=== PATIENT | male | born 1930 | race Caucasian/White ===

== ENCOUNTER → 2017-03-14 | Outpatient (CLI) | payer MEDICARE, BC ==
[2017-03-14 09:16] LABS: ALT 25 U/L (21-72); AST 25 U/L (17-59); Cholesterol 117 mg/dL (<200); HDL Cholesterol 57 mg/dL (40-60); Triglycerides 86 mg/dL (<150)
== END | disposition home or self-care (01) ==
LOC: LABWHC1 08:35
PROVIDERS: ATTEND Internal Medicine Interventional Cardiology
DX: E78.2 Mixed hyperlipidemia (principal)
CPT/HCPCS: 36415; 80061; 84450; 84460

== ENCOUNTER → 2017-09-05 | Outpatient (CLI) | payer MEDICARE, BC ==
[2017-09-05 11:44] LABS: ALT 25 U/L (21-72); AST 28 U/L (17-59); Cholesterol 120 mg/dL (<200); Creatine Kinase 79 U/L (55-170); HDL Cholesterol 54 mg/dL (40-60)
== END | disposition home or self-care (01) ==
LOC: LABWHC1 10:04
PROVIDERS: ATTEND Nurse Practitioner Adult Health
DX: E78.2 Mixed hyperlipidemia (principal)
CPT/HCPCS: 36415; 80061; 82550; 84450; 84460

== ENCOUNTER → 2018-03-14 | Outpatient (CLI) | payer MEDICARE, BC ==
[2018-03-14 10:36] LABS: Albumin 4.4 g/dL (3.5-5.0); Calcium 9.8 mg/dL (8.4-10.2); Potassium 4.7 mmol/L (3.5-5.1); Total Bilirubin 0.5 mg/dL (0.2-1.3); Total Protein 7.1 g/dL (6.3-8.2)
== END | disposition home or self-care (01) ==
LOC: LABWHC1 09:05
PROVIDERS: ATTEND Internal Medicine Interventional Cardiology
DX: E78.2 Mixed hyperlipidemia (principal)
CPT/HCPCS: 36415; 80053; 80061

== ENCOUNTER → 2018-09-10 | Outpatient (CLI) | payer MEDICARE, BC ==
[2018-09-10 11:13] LABS: ALT 27 U/L (21-72); AST 23 U/L (17-59); Cholesterol 119 mg/dL (<200); HDL Cholesterol 50 mg/dL (40-60); LDL Cholesterol,Calculated 50 mg/dL (0-99); Triglycerides 95 mg/dL (<150)
== END | disposition home or self-care (01) ==
LOC: LABWHC1 09:31
PROVIDERS: ATTEND Internal Medicine Interventional Cardiology
DX: E78.2 Mixed hyperlipidemia (principal)
CPT/HCPCS: 36415; 80061; 84450; 84460

== ENCOUNTER → 2019-04-02 | Outpatient (CLI) | payer MEDICARE, BC ==
[2019-04-02 15:56] LABS: Albumin 4.6 g/dL (3.80-4.90); Albumin/Globulin Ratio 2.19 (1.60-3.17); Anion Gap 6.5 mmol/L (4.00-12.00); Calcium 9.6 mg/dL (8.7-10.3); Carbon Dioxide 27.5 mmol/L (21.6-31.8); Globulin 2.1 g/dL (1.6-3.3); Potassium 4.2 mmol/L (3.5-5.5); Total Bilirubin 0.5 mg/dL (0.3-1.2); Total Protein 6.7 g/dL (6.2-8.2)
== END | disposition home or self-care (01) ==
LOC: LABWHC1 08:58
PROVIDERS: ATTEND Nurse Practitioner Adult Health
DX: E78.2 Mixed hyperlipidemia (principal); I10 Essential (primary) hypertension; I25.10 Atherosclerotic heart disease of native coronary artery without angina pectoris
CPT/HCPCS: 36415; 80053; 80061

== ENCOUNTER 2019-04-17 17:55 | Inpatient (IN) | payer MEDICARE, BC ==
[2019-04-17] MEDS ORDERED: SODIUM CHLORIDE 0.9% 500 ML 500 ML IV STA (19:43)
[2019-04-17 20:15] LABS: Basophils % (A) 0 %; Eosinophils # (A) 0.2 k/uL (0-0.7); Eosinophils % (A) 2 %; HCT 35.8 % (39.0-53.0); HGB 12.2 gm/dL (13.0-17.5); Lymphocytes # (A) 0.7 k/uL (1.0-4.8); Lymphocytes % (A) 10 %; MCH 31.6 pg (25.0-35.0); MCHC 34.2 g/dL (31.0-37.0); MCV 92.5 fL (80.0-100.0); Mean Platelet Volume 6.8; Monocytes # (A) 0.4 k/uL (0-1.0); Monocytes % (A) 6 %; Neutrophils # (A) 5.8 k/uL (1.3-7.7); Neutrophils % (A) 81 %; Platelet Count 178 k/uL (150-450); RBC 3.87 m/uL (4.30-5.90); WBC 7.1 k/uL (3.8-10.6)
[2019-04-17 20:28] LABS: Albumin 4.9 g/dL (3.5-5.0); Calcium 10.2 mg/dL (8.4-10.2); Potassium 4.2 mmol/L (3.5-5.1); Total Bilirubin 0.7 mg/dL (0.2-1.3); Total Protein 7.9 g/dL (6.3-8.2)
[2019-04-17] MEDS ORDERED: MORPHINE SULFATE 4 MG/ML SYRINGE IV STA (20:29)
--- NOTE | 2019-04-17 21:59 | CT ---
EXAMINATION TYPE: CT abdomen pelvis w con DATE OF EXAM: 04/17/2019 COMPARISON: None HISTORY: Abdominal pain and nausea CT DLP: 805.5 mGycm Automated exposure control for dose reduction was used. TECHNIQUE: Helical acquisition of images was performed from the lung bases through the pelvis. CONTRAST: Performed without Oral Contrast and with IV Contrast, patient injected with 100 mL of Isovu e 300. FINDINGS: LUNG BASES: No significant abnormality is appreciated. BOWEL: There is mild small bowel dilation of ileal loops in the right lower quadrant and mid abdomen . These loops show mild circumferential mural thickening, seen particularly well at the midline at an d just below the level of the sacral promontory. There is no pneumatosis, pneumoperitoneum, or peritoneal fluid. There is collapsed distal ileum, and the colon shows both gas and fecal material throughout. The celiac axis and SMA and SRIDHAR are patent th ere are no mesenteric abnormalities. Appendix is negative. LIVER/GB: No significant abnormality is appreciated. PANCREAS: No significant abnormality is seen. SPLEEN: No significant abnormality is seen. ADRENALS: No significant abnormality is seen. KIDNEYS: No significant abnormality is seen. ADENOPATHY: None visualized REPRODUCTIVE ORGANS: No significant abnormality is seen. Fluid density incidentally noted within the right scrotal sac and spermatic cord, for which palpation correlation is requested. URINARY BLADDER: No significant abnormality is seen. OSSEOUS STRUCTURES: No significant abnormality is seen. OTHER: No acute vascular process. 3 cm abdominal aortic aneurysm noted. IMPRESSION: 1. MILD DISTAL ILEAL SMALL BOWEL OBSTRUCTION; SUSPECT ADHESIONS THERE IS NO PATHOLOGY AT THE ILEAL TRANSITION POINT. 2. INCIDENTAL FLUID DENSITY WITHIN RIGHT SCROTAL SAC AND SPERMATIC CORD.
[2019-04-17] MEDS ORDERED: NALOXONE 0.4 MG/ML 1 ML VIAL IV PRN (22:44)
[2019-04-17] MEDS ORDERED: MORPHINE SULFATE 4 MG/ML SYRINGE IV PRN (22:44)
--- NOTE | 2019-04-17 22:44 | ED ---
General Adult HPI - General Chief complaint: Abdominal Pain Stated complaint: groin pain Time Seen by Provider: 04/17/19 19:42 Source: patient, RN notes reviewed, old records reviewed Mode of arrival: wheelchair Limitations: no limitations - History of Present Illness Initial comments: 88-year-old male patient with past medical history of hypertension, hyp erlipidemia presents to ED with right lower quadrant abdominal pain. Patient reports he has had waxing pain approximately 2 months. Patient did have one episode of emesis today. Patient denies any fevers. Patient denies any other complaints. Denies chest pain shortness breath abdominal pain. Systemic: Pt denies fatigue, myalgia, fever/chills, rash. Pt denies weakness, night sweats, weight loss. Neuro: Pt denies headache, visual disturbances, syncope or pre-syncope. HEENT: Pt denies ocular discharge or irritation, otalgia, rhinorrhea, pharyngitis or notable lymphadenopathy. Cardiopulmonary: Pt denies chest pain, SOB, heart palpitations, dyspnea on exertion. Abdominal/GI: Pt denies v/d. : Pt denies dysuria, burning w/ urination, frequency/urgency. Denies new onset urinary or bowel incontinence. MSK: Pt denies myalgia, loss of strength or function in extremities. Neuro: Pt denies new onset weakness, paresthesias. - Related Data Allergies Allergy/AdvReac Type Severity Reaction Status Date / Time No Known Allergies Allergy Verified 04/17/19 18:13 Review of Systems ROS Statement: Those systems with pertinent positive or pertinent negative responses have been documented in the HPI. ROS Other: All systems not noted in ROS Statement are negative. Past Medical History Past Medical History: Hyperlipidemia, Hypertension History of Any Multi-Drug Resistant Organisms: None Reported Past Surgical History: Joint Replacement Past Psychological History: No Psychological Hx Reported Smoking Status: Never smoker Past Alcohol Use History: None Reported Past Drug Use History: None Reported General Exam - General Exam Comments Initial Comments: Constitutional: NAD, AOX3, Pt has pleasant affect. HEENT: NC/AT, trachea midline, neck supple, no lymphadenopathy. Posterior pharynx non erythematous, without exudates. External ears appear normal, without discharge. Mucous membranes moist. Eyes PERRLA, EOM intact. There is no scleral icterus. No pallor noted. Cardiopulmonary: RRR, no murmurs, rubs or gallops, no JVD noted. Lungs CTAB in anterior and posterior [place]. No peripheral edema. Abdominal exam: Abdomen soft and non-distended. Abdomen mildly tender to palpation right lower quadrant, no other areas of abdominal tenderness. No guarding or rigidity no ecchymoses.. Bowel sounds active in LLQ. No hepatosplenomegaly. No ecchymosis Neuro: CN II-XII grossly intact. No nuchal rigidity. MSK: No posterior calf tenderness bilaterally, homans sign negative bilaterally. Posterior tibialis and radial pulse +2 bilaterally. Sensation intact in upper and lower extremities. Full active ROM in upper and lower extremities, 5/5 stregnth. Limitations: no limitations Course Vital Signs 04/17/19 04/17/19 18:09 20:28 Temperature 98.9 F Pulse Rate 58 L 77 Respiratory 20 16 Rate Blood Pressure 186/79 141/82 O2 Sat by Pulse 100 98 Oximetry Medical Decision Making - Medical Decision Making 88-year-old male patient with past medical history of hypertension, hyperlipidemia presents to ED with right lower quadrant abdominal pain. Patient reports he has had waxing pain approximately 2 months. Patient did have one episode of emesis today. Patient denies any fevers. Patient denies any other complaints. Denies chest pain shortness breath abdominal pain. Pt VSS, afebrile. Physical exam displayed: Abdomen soft and non-distended. Abdomen mildly tender to palpation right lower quadrant, no other areas of abdominal tenderness. No guarding or rigidity no ecchymoses. Laboratory investigations displayed nonpresent CBC, CMP. CT abdomen pelvis displayed small bowel instruction. G-tube placed. Patient be admitted for small bowel obstruction surgery consult. Case discussed the patient seen by Dr. Valadez. - Lab Data Result diagrams: 04/17/19 20:05 04/17/19 20:05 Lab Results 04/17/19 04/17/19 04/17/19 Range/Units 20:05 20:05 20:05 WBC 7.1 (3.8-10.6) k/uL RBC 3.87 L (4.30-5.90) m/uL Hgb 12.2 L (13.0-17.5) gm/dL Hct 35.8 L (39.0-53.0) % MCV 92.5 (80.0-100.0) fL MCH 31.6 (25.0-35.0) pg MCHC 34.2 (31.0-37.0) g/dL RDW 14.0 (11.5-15.5) % Plt Count 178 (150-450) k/uL Neutrophils % 81 % Lymphocytes % 10 % Monocytes % 6 % Eosinophils % 2 % Basophils % 0 % Neutrophils # 5.8 (1.3-7.7) k/uL Lymphocytes # 0.7 L (1.0-4.8) k/uL Monocytes # 0.4 (0-1.0) k/uL Eosinophils # 0.2 (0-0.7) k/uL Basophils # 0.0 (0-0.2) k/uL Sodium 141 (137-145) mmol/L Potassium 4.2 (3.5-5.1) mmol/L Chloride 103 (98-107) mmol/L Carbon Dioxide 29 (22-30) mmol/L Anion Gap 9 mmol/L BUN 27 H (9-20) mg/dL Creatinine 0.99 (0.66-1.25) mg/dL Est GFR (CKD-EPI)AfAm 79 (>60 ml/min/1.73 sqM) Est GFR (CKD-EPI)NonAf 68 (>60 ml/min/1.73 sqM) Glucose 142 H (74-99) mg/dL Plasma Lactic Acid [place] 1.1 (0.7-2.0) mmol/L Calcium 10.2 (8.4-10.2) mg/dL Total Bilirubin 0.7 (0.2-1.3) mg/dL AST 31 (17-59) U/L ALT 16 L (21-72) U/L Alkaline Phosphatase 97 (38-126) U/L Total Protein 7.9 (6.3-8.2) g/dL Albumin 4.9 (3.5-5.0) g/dL Lipase 89 (23-300) U/L Disposition Clinical Impression: Small bowel obstruction Disposition: ADMITTED IP TO THIS [facility] Condition: Serious Is patient prescribed a controlled substance at d/c from ED?: No
[2019-04-18 00:07] LABS: Appearance,Urine Clear (Clear); Bilirubin,Urine Negative (Negative); Blood,Urine Small (Negative); Color,Urine Light Yellow; Glucose,Urine (UA) Negative (Negative); Ketones,Urine Negative (Negative); Leukocyte Esterase,Urine Negative (Negative); Mucus,Urine Rare /hpf; Nitrite,Urine Negative (Negative); PH, Urine 7.5 (5.0-8.0); Protein,Urine Negative (Negative); RBC,Urine 21 /hpf (0-5); Urobilinogen,Urine <2.0 mg/dL (<2.0)
[2019-04-18] MEDS: SODIUM CHLORIDE 0.9% 1,000 ML IV SCH ×3 (00:09→17:46)
--- NOTE | 2019-04-18 01:02 | XR ---
EXAM: XR Chest, 1 View CLINICAL HISTORY: ITS.REASON XR Reason: newly placed NGT TECHNIQUE: Frontal view of the chest. COMPARISON: No relevant prior studies available. FINDINGS: Lungs: The lungs are otherwise clear. Pleural space: Unremarkable. No pneumothorax. Heart: Unremarkable. No cardiomegaly. Mediastinum: Unremarkable. Bones/joints: Unremarkable. Vasculature: 5 mm presumed vessel on end versus less likely nodule in the left lower lung. Mild calcification of the aortic arch. Tubes, lines and devices: The gastric tube is not well-visualized on this exam. A presumed endotracheal tube terminates approximately 3.5 cm about the skip. Alternatively, this could represent the tip of the gastric tube. IMPRESSION: 1. 5 mm presumed vessel on end versus less likely nodule in the left lower lung. 2. The gastric tube is not well-visualized on this exam. A presumed endotracheal tube terminates approximately 3.5 cm about the skip. Alternatively, this could represent the tip of the gastric tube. An abdominal radiograph would be more sensitive in evaluation of the gastric tube.
[2019-04-18 01:45] VITALS: RESP 16
[2019-04-18] MEDS ORDERED: ACETAMINOPHEN TAB 325 MG TAB PO PRN (11:24)
[2019-04-18] MEDS ORDERED: KETOROLAC 30 MG/ML 1 ML VIAL IVP PRN (11:27)
--- NOTE | 2019-04-18 12:37 | P.HPIM ---
History of Present Illness present pleasant 88-year-old gentleman came in with complaints of nausea vomiting restarted yesterday multiple episodes of emesis along with mild diffuse abdominal pain predominantly in the right lower quadrant. Pain is significant better now. Patient is an NG tube didn't drain much patient is found to have partial small bowel obstruction at deodenal level secondary to adhesions. We will clamp the NG tube will monitor for 3 hours patient is not nauseous NG tube will be discussed in patient will be started on diet. Morphine will be discontinued patient was started on Tylenol for pain and if needed Toradol with GI prophylaxis.his last bowel movement was a couple days ago Review of Systems REVIEW OF SYSTEMS: CONSTITUTIONAL: No fever, no malaise, no fatigue. HEENT: No recent visual problems or hearing problems. Denied any sore throat. CARDIOVASCULAR: No chest pain, orthopnea, PND, no palpitations, no syncope. PULMONARY: No shortness of breath, no cough, no hemoptysis. GASTROINTESTINAL: as mentioned in HPI NEUROLOGICAL: No headaches, no weakness, no numbness. HEMATOLOGICAL: Denies any bleeding or petechiae. GENITOURINARY: Denies any burning micturition, frequency, or urgency. MUSCULOSKELETAL/RHEUMATOLOGICAL: Denies any joint pain, swelling, or any muscle pain. ENDOCRINE: Denies any polyuria or polydipsia. The rest of the 14-point review of systems is negative. Past Medical History Past Medical History: Hyperlipidemia, Hypertension History of Any Multi-Drug Resistant Organisms: None Reported Past Surgical History: Joint Replacement Past Anesthesia/Blood Transfusion Reactions: No Reported Reaction Past Psychological History: No Psychological Hx Reported Smoking Status: Never smoker Past Alcohol Use History: None Reported Past Drug Use History: None Reported - Past Family History Mother Family Medical History: No Reported History Medications and Allergies Home Medications Medication Instructions Recorded Confirmed Type Aspirin EC [Ecotrin Low Dose] 81 mg PO DAILY 04/18/19 04/18/19 History Atorvastatin [Lipitor] 20 mg PO DAILY 04/18/19 04/18/19 History Enalapril/Hydrochlorothiazide 1 tab PO DAILY 04/18/19 04/18/19 History [Enalapril-Hctz 10-25 mg Tablet] HYDROcodone/APAP 10-325MG [[place] 1 tab PO Q4HR PRN 04/18/19 04/18/19 History 10-325] Isosorbide Mononitrate ER [Imdur] 60 mg PO DAILY 04/18/19 04/18/19 History Levothyroxine Sodium [Synthroid] 50 mcg PO DAILY 04/18/19 04/18/19 History Multivitamins, Thera [Multivitamin 1 tab PO DAILY 04/18/19 04/18/19 History (formulary)] Tamsulosin [Flomax] 0.4 mg PO BID 04/18/19 04/18/19 History Allergies Allergy/AdvReac Type Severity Reaction Status Date / Time No Known Allergies Allergy Verified 04/18/19 08:56 Physical Exam Vitals: Vital Signs Temp Pulse Pulse Resp BP BP Pulse Ox 04/18/19 07:05 98.6 F 54 L 16 183/81 100 04/18/19 01:41 98.4 F 53 L 16 179/71 93 L 04/18/19 00:15 98.9 F 60 19 189/77 100 04/18/19 00:07 98.2 F 61 16 181/73 98 04/17/19 20:28 77 16 141/82 98 04/17/19 18:09 98.9 F 58 L 20 186/79 100 Intake and Output 04/17/19 04/18/19 04/18/19 22:59 06:59 14:59 Intake Total 2160 Output Total 700 Balance 2160 -700 Intake: Amount of Fluid Infused ( 1000 ml) Intake, IV Titration 1160 Amount Sodium Chloride 0.9% 1, 660 000 ml @ 110 mls/hr IV . Q9H6M VILMA Rx#:[id number] Sodium Chloride 0.9% 500 500 ml 500 ml @ 999 mls/hr IV .Q31M STA Rx#:[id number] Output: Urine 700 Other: # Voids 3 Weight 72.575 kg PHYSICAL EXAMINATION: GENERAL: The patient is alert and oriented x3, not in any acute distress. Well developed, well nourished. HEENT: Pupils are round and equally reacting to light. EOMI. No scleral icterus. No conjunctival pallor. Normocephalic, atraumatic. No pharyngeal erythema. No thyromegaly. CARDIOVASCULAR: S1 and S2 present. No murmurs, rubs, or gallops. PULMONARY: Chest is clear to auscultation, no wheezing or crackles. ABDOMEN: Soft, nontender, nondistended, normoactive bowel sounds. No palpable organomegaly.patient has an NG tube in place MUSCULOSKELETAL: No joint swelling or deformity. EXTREMITIES: No cyanosis, clubbing, or pedal edema. NEUROLOGICAL: Gross neurological examination did not reveal any focal deficits. SKIN: No rashes. Results CBC & Chem 7: 04/17/19 20:05 04/17/19 20:05 Labs: Abnormal Lab Results - Last 24 Hours (Table) 04/17/19 04/17/19 04/17/19 Range/Units 20:05 20:05 23:50 RBC 3.87 L (4.30-5.90) m/uL Hgb 12.2 L (13.0-17.5) gm/dL Hct 35.8 L (39.0-53.0) % Lymphocytes # 0.7 L (1.0-4.8) k/uL BUN 27 H (9-20) mg/dL Glucose 142 H (74-99) mg/dL ALT 16 L (21-72) U/L Ur Specific [place] 1.050 H (1.001-1.035) Urine Blood Small H (Negative) Urine RBC 21 H (0-5) /hpf Urine Mucus Rare H (None) /hpf Thrombosis Risk Factor Assmnt - Choose All That Apply Any of the Below Risk Factors Present?: Yes Each Factor Represents 1 point: Obesity (BMI >25) Other Risk Factors: Yes Each Risk Factor Represents 3 Points: Age 75 years or older Other congenital or acquired thrombophilia - If yes, enter type in comment: No Thrombosis Risk Factor Assessment Total Risk Factor Score: 4 Thrombosis Risk Factor Assessment Level: Moderate Risk Assessment and Plan Plan: -partial small bowel obstruction: continue with IV fluids, IV fluids to 75 mL/h clamped NG tube as mentioned above and patient is not nauseous NG tube will be discontinued and patient was started on diet. -hyperlipidemia - hypertension -hypothyroidism -Benign prostatic hypertrophy -GI prophylaxis with Protonix and DVT prophylaxis, early ambulation Further those above-mentioned chronic medical problems patient will be resumed on appropriate home medications whenever he can tolerate by mouth meds.
[2019-04-18] MEDS: PANTOPRAZOLE 40 MG/10 ML VIAL IVP SCH (12:47)
--- NOTE | 2019-04-18 15:02 | P.GSCN ---
History of Present Illness Consult date: 04/18/19 Reason for Consult: Right groin pain History of present illness: Patient presents to the hospital complaints of pain in the right groin. Patient had a CAT scan performed which shows some fluid in the right inguinal canal and also some thickening of the terminal ileum. The patient states he was not feeling a bulge there. He was previously told he had a hernia in the left groin. Patient doing better today. Nasogastric tube was in place. Last bowel movement 2 days ago. No nausea or vomiting. Denies pain currently. Review of Systems The patient denies any acute changes in vision or hearing, no dysphagia or odynophagia, no chest pain or shortness of breath, no dysuria or hematuria, no headache, no runny nose, no rectal bleeding or melena, no unexplained weight loss Past Medical History Past Medical History: Hyperlipidemia, Hypertension History of Any Multi-Drug Resistant Organisms: None Reported Past Surgical History: Joint Replacement Past Anesthesia/Blood Transfusion Reactions: No Reported Reaction Past Psychological History: No Psychological Hx Reported Smoking Status: Never smoker Past Alcohol Use History: None Reported Past Drug Use History: None Reported - Past Family History Mother Family Medical History: No Reported History Medications and Allergies Home Medications Medication Instructions Recorded Confirmed Type Aspirin EC [Ecotrin Low Dose] 81 mg PO DAILY 04/18/19 04/18/19 History Atorvastatin [Lipitor] 20 mg PO DAILY 04/18/19 04/18/19 History Enalapril/Hydrochlorothiazide 1 tab PO DAILY 04/18/19 04/18/19 History [Enalapril-Hctz 10-25 mg Tablet] HYDROcodone/APAP 10-325MG [[place] 1 tab PO Q4HR PRN 04/18/19 04/18/19 History 10-325] Isosorbide Mononitrate ER [Imdur] 60 mg PO DAILY 04/18/19 04/18/19 History Levothyroxine Sodium [Synthroid] 50 mcg PO DAILY 04/18/19 04/18/19 History Multivitamins, Thera [Multivitamin 1 tab PO DAILY 04/18/19 04/18/19 History (formulary)] Tamsulosin [Flomax] 0.4 mg PO BID 04/18/19 04/18/19 History Allergies Allergy/AdvReac Type Severity Reaction Status Date / Time No Known Allergies Allergy Verified 04/18/19 08:56 Surgical - Exam Vital Signs Temp Pulse Resp BP Pulse Ox 98.9 F 58 L 20 186/79 100 04/17/19 18:09 04/17/19 18:09 04/17/19 18:09 04/17/19 18:09 04/17/19 18:09 Physical exam: General: Well-developed, well-nourished HEENT: Normocephalic, sclerae nonicteric Abdomen: Nontender, nondistended, bilateral inguinal hernia palpable and reducible Extremities: No edema Neuro: Alert and oriented Results - Labs 04/17/19 20:05 04/17/19 20:05 Abnormal Lab Results - Last 24 Hours (Table) 04/17/19 04/17/19 04/17/19 Range/Units 20:05 20:05 23:50 RBC 3.87 L (4.30-5.90) m/uL Hgb 12.2 L (13.0-17.5) gm/dL Hct 35.8 L (39.0-53.0) % Lymphocytes # 0.7 L (1.0-4.8) k/uL BUN 27 H (9-20) mg/dL Glucose 142 H (74-99) mg/dL ALT 16 L (21-72) U/L Ur Specific [place] 1.050 H (1.001-1.035) Urine Blood Small H (Negative) Urine RBC 21 H (0-5) /hpf Urine Mucus Rare H (None) /hpf Diabetes panel 04/17/19 Range/Units 20:05 Sodium 141 (137-145) mmol/L Potassium 4.2 (3.5-5.1) mmol/L Chloride 103 (98-107) mmol/L Carbon Dioxide 29 (22-30) mmol/L BUN 27 H (9-20) mg/dL Creatinine 0.99 (0.66-1.25) mg/dL Glucose 142 H (74-99) mg/dL Calcium 10.2 (8.4-10.2) mg/dL AST 31 (17-59) U/L ALT 16 L (21-72) U/L Alkaline Phosphatase 97 (38-126) U/L Total Protein 7.9 (6.3-8.2) g/dL Albumin 4.9 (3.5-5.0) g/dL Calcium panel 04/17/19 Range/Units 20:05 Calcium 10.2 (8.4-10.2) mg/dL Albumin 4.9 (3.5-5.0) g/dL Pituitary panel 04/17/19 Range/Units 20:05 Sodium 141 (137-145) mmol/L Potassium 4.2 (3.5-5.1) mmol/L Chloride 103 (98-107) mmol/L Carbon Dioxide 29 (22-30) mmol/L BUN 27 H (9-20) mg/dL Creatinine 0.99 (0.66-1.25) mg/dL Glucose 142 H (74-99) mg/dL Calcium 10.2 (8.4-10.2) mg/dL Adrenal panel 04/17/19 Range/Units 20:05 Sodium 141 (137-145) mmol/L Potassium 4.2 (3.5-5.1) mmol/L Chloride 103 (98-107) mmol/L Carbon Dioxide 29 (22-30) mmol/L BUN 27 H (9-20) mg/dL Creatinine 0.99 (0.66-1.25) mg/dL Glucose 142 H (74-99) mg/dL Calcium 10.2 (8.4-10.2) mg/dL Total Bilirubin 0.7 (0.2-1.3) mg/dL AST 31 (17-59) U/L ALT 16 L (21-72) U/L Alkaline Phosphatase 97 (38-126) U/L Total Protein 7.9 (6.3-8.2) g/dL Albumin 4.9 (3.5-5.0) g/dL Assessment and Plan (1) Small bowel obstruction Narrative/Plan: Patient with likely presentation of incarcerated right inguinal hernia. I suspect shortly before the CAT scan was performed the patient's hernia reduced. This would explain the thickening of the ileum and the fluid in the inguinal canal. Patient a symptomatically currently. We'll remove nasogastric tube and start diet. May discharge tolerates. Plan outpatient hernia repair. Current Visit: Yes Status: Acute Code(s): K56.609 - UNSP INTESTNL OBST, UNSP TO PARTIAL VERSUS COMPLETE OBST SNOMED Code(s): 325486894
[2019-04-18] MEDS: TAMSULOSIN 0.4 MG CAP.ER.24H PO SCH (20:40)
[2019-04-19] MEDS ORDERED: LEVOTHYROXINE 50 MCG TAB PO SCH (06:30)
[2019-04-19 07:15] LABS: Calcium 9.3 mg/dL (8.4-10.2); Potassium 3.9 mmol/L (3.5-5.1)
[2019-04-19 08:12] VITALS: BP 147/65; PULSE 62; TEMP 98.1
[2019-04-19] MEDS: PANTOPRAZOLE 40 MG/10 ML VIAL IVP SCH ×2 (08:13→12:27)
[2019-04-19] MEDS: TAMSULOSIN 0.4 MG CAP.ER.24H PO SCH (08:13)
[2019-04-19] MEDS ORDERED: ATORVASTATIN 20 MG TAB PO SCH (09:00)
[2019-04-19] MEDS ORDERED: ISOSORBIDE MONONITRATE ER 60 MG TAB.ER.24H PO SCH (09:00)
[2019-04-19] MEDS ORDERED: ASPIRIN 81 MG PO SCH (09:00)
[2019-04-19] MEDS: SODIUM CHLORIDE 0.9% 1,000 ML IV SCH (09:59)
--- NOTE | 2019-04-19 11:32 | P.PN ---
Progress Note - Text Progress Note Date: 04/19/19 Patient is doing well. He has no plans of pain. He is tolerating diet. On exam is lesser stable presents soft. Patiently discharged home today. He'll follow-up Dr. Jones next week.
--- NOTE | 2019-04-19 12:55 | P.DS ---
Providers Date of admission: 04/17/19 22:20 Attending physician: Natalie Tubbs Consults: 04/17/19 22:44 Consult Physician Stat Consulting Provider: Damon Jones Reason/Comments: small bowel obstruction Do you want consulting provider notified?: Yes Primary care physician: Kristi Huerta [facility] Course: 88-year-old gentleman came in with complaints of nausea vomiting restarted yesterday multiple episodes of emesis along with mild diffuse abdominal pain predominantly in the right lower quadrant. Pain is significant better now. Patient is an NG tube didn't drain much patient is found to have partial small bowel obstruction at deodenal level secondary to adhesions. We will clamp the NG tube will monitor for 3 hours patient is not nauseous NG tube will be discussed in patient will be started on diet. Morphine will be discontinued patient was started on Tylenol for pain and if needed Toradol with GI prophylaxis.his last bowel movement was a couple days ago 04/19/2019 Patient is able to tolerate regular diet very well. Patient bowel obstruction resolved patient appears to have had incarcerated hernia which was reduced area and patient is cleared from general surgery perspective. PHYSICAL EXAMINATION: GENERAL: The patient is alert and oriented x3, not in any acute distress. Well developed, well nourished. HEENT: Pupils are round and equally reacting to light. EOMI. No scleral icterus. No conjunctival pallor. Normocephalic, atraumatic. No pharyngeal erythema. No thyromegaly. CARDIOVASCULAR: S1 and S2 present. No murmurs, rubs, or gallops. PULMONARY: Chest is clear to auscultation, no wheezing or crackles. ABDOMEN: Soft, nontender, nondistended, normoactive bowel sounds. No palpable organomegaly. MUSCULOSKELETAL: No joint swelling or deformity. EXTREMITIES: No cyanosis, clubbing, or pedal edema. NEUROLOGICAL: Gross neurological examination did not reveal any focal deficits. SKIN: No rashes. Further chronic medical problems hospitalization course please refer to my dictation of H&P from yesterday Patient Condition at Discharge: Serious Plan - Discharge Summary Discharge Rx Participant: Yes New Discharge Prescriptions: Continue Atorvastatin [Lipitor] 20 mg PO DAILY Tamsulosin [Flomax] 0.4 mg PO BID Multivitamins, Thera [Multivitamin (formulary)] 1 tab PO DAILY Levothyroxine Sodium [Synthroid] 50 mcg PO DAILY Isosorbide Mononitrate ER [Imdur] 60 mg PO DAILY HYDROcodone/APAP 10-325MG [[place] 10-325] 1 tab PO Q4HR PRN PRN Reason: Pain Enalapril/Hydrochlorothiazide [Enalapril-Hctz 10-25 mg Tablet] 1 tab PO DAILY Aspirin EC [Ecotrin Low Dose] 81 mg PO DAILY Discharge Medication List Aspirin EC [Ecotrin Low Dose] 81 mg PO DAILY 04/18/19 [History] Atorvastatin [Lipitor] 20 mg PO DAILY 04/18/19 [History] Enalapril/Hydrochlorothiazide [Enalapril-Hctz 10-25 mg Tablet] 1 tab PO DAILY 04/18/19 [History] HYDROcodone/APAP 10-325MG [[place] 10-325] 1 tab PO Q4HR PRN 04/18/19 [History] Isosorbide Mononitrate ER [Imdur] 60 mg PO DAILY 04/18/19 [History] Levothyroxine Sodium [Synthroid] 50 mcg PO DAILY 04/18/19 [History] Multivitamins, Thera [Multivitamin (formulary)] 1 tab PO DAILY 04/18/19 [History] Tamsulosin [Flomax] 0.4 mg PO BID 04/18/19 [History] Follow up Appointment(s)/Referral(s): Damon Jones MD [Medical Doctor] - 1 Week Kristi Huerta DO [Primary Care Provider] - 3 Days Discharge Disposition: HOME SELF-CARE
== END 2019-04-19 13:23 | disposition home or self-care (01) | DRG 389 ==
LOC: EC 17:55 → 4SSUR 22:20
PROVIDERS: ADMIT Hospitalist; ATTEND Hospitalist
PROC: 0D9670Z Drainage of Stomach with Drainage Device, Via Natural or Artificial Opening (ICD-10-PCS; principal; 2019-04-17)
DX: K56.51 Intestinal adhesions [bands], with partial obstruction (principal); K40.30 Unilateral inguinal hernia, with obstruction, without gangrene, not specified as recurrent; I10 Essential (primary) hypertension; E78.5 Hyperlipidemia, unspecified; E03.9 Hypothyroidism, unspecified; N40.0 Benign prostatic hyperplasia without lower urinary tract symptoms; Z79.82 Long term (current) use of aspirin; Z79.890 Hormone replacement therapy; Z79.899 Other long term (current) drug therapy
CPT/HCPCS: 36415; 71045; 74177; 80048; 80053; 81001; 83605; 83690; 85025; 96360; 96361; 99285

== ENCOUNTER → 2019-09-17 | Outpatient (CLI) | payer MEDICARE, BC ==
[2019-09-17 10:36] LABS: Basophils % (A) 1 %; Eosinophils % (A) 1 %; HCT 32.6 % (39.0-53.0); HGB 11.1 gm/dL (13.0-17.5); Lymphocytes # (A) 0.5 k/uL (1.0-4.8); Lymphocytes % (A) 12 %; MCH 31.9 pg (25.0-35.0); MCHC 34.1 g/dL (31.0-37.0); MCV 93.3 fL (80.0-100.0); Mean Platelet Volume 5.6; Monocytes # (A) 0.2 k/uL (0-1.0); Monocytes % (A) 5 %; Neutrophils # (A) 3.3 k/uL (1.3-7.7); Neutrophils % (A) 80 %; Platelet Count 191 k/uL (150-450); RBC 3.49 m/uL (4.30-5.90); RDW 12.7 % (11.5-15.5); WBC 4.1 k/uL (3.8-10.6)
[2019-09-17 15:49] LABS: African American GFR (CKD) 77.5 (60.0-200.0); Albumin 4.7 g/dL (3.80-4.90); Albumin/Globulin Ratio 2.24 (1.60-3.17); Anion Gap 11.9 mmol/L (4.00-12.00); Calcium 9.7 mg/dL (8.7-10.3); Carbon Dioxide 24.1 mmol/L (21.6-31.8); Chol/HDL Ratio 2.42; Globulin 2.1 g/dL (1.6-3.3); LDL Cholesterol,Calculated 55.4 mg/dL (0.0-131.0); Potassium 4.2 mmol/L (3.5-5.5); Total Bilirubin 0.7 mg/dL (0.3-1.2); Total Protein 6.8 g/dL (6.2-8.2); VLDL Calculation 19.6 mg/dL (5.00-40.00)
== END | disposition home or self-care (01) ==
LOC: LABWHC1 09:39
PROVIDERS: ATTEND Nurse Practitioner Adult Health
DX: E78.2 Mixed hyperlipidemia (principal); E03.9 Hypothyroidism, unspecified
CPT/HCPCS: 36415; 80053; 80061; 84443; 85025

== ENCOUNTER 2019-10-11 16:18 | Emergency (ER) | payer MEDICARE, BC ==
--- NOTE | 2019-10-11 18:02 | US ---
EXAMINATION TYPE: US groin RT DATE OF EXAM: 10/11/2019 COMPARISON: CT CLINICAL HISTORY: pain, hx of hernia. Swelling and pain right groin and pubic area; patient stated sadler s hernia here x 1 year. Right Groin US: tubular bowel structure (peristalsing noted within) at right groin medial and anterio r to iliac vessels and imaged superior as elongated hypoechoic structure to inferior level of scrotum . Suspect hernia here. Right hydrocele also noted = 5.8 x 3.1 x 1.4cm. Left hydrocele imaged = 8.5 x 6.4 x 5.4cm. Color flow is imaged in bilateral testicle. IMPRESSION: There is evidence of a right-sided inguinal and scrotal hernia that contains bowel. Righ t-sided hydrocele also noted. Color-flow Doppler images show no evidence of testicular torsion.
--- NOTE | 2019-10-11 18:13 | ED ---
Abdominal Pain HPI - General Chief Complaint: Abdominal Pain Stated Complaint: groin pain Time Seen by Provider: 10/11/19 16:37 Source: patient Mode of arrival: ambulatory Limitations: no limitations - History of Present Illness Initial Comments: Patient is an 89-year-old male presenting to emergency Department with complaints of right sided groin pain that happened just a couple hours before arrival. Patient states he was screwing some plastic into the windows when he felt pain in his right groin. Patient states he does have history of a hernia b ut states is never hurt this bad before. Patient states he feels a bulge in his right groin. Patient has been having regular bowel movements. Patient did have a consult with Dr. Dominguez and Dr. Tineo during his last hospital admission due to an obstruction however he does not wish to continue care with either the surgeons. Patient denies any nausea, vomiting, fever, chills. Patient has no other complaints at this time. Upon arrival to the ER, vital signs are stable. - Related Data Home Medications Medication Instructions Recorded Confirmed Aspirin EC [Ecotrin Low Dose] 81 mg PO DAILY 04/18/19 04/18/19 Atorvastatin [Lipitor] 20 mg PO DAILY 04/18/19 04/18/19 Enalapril/Hydrochlorothiazide 1 tab PO DAILY 04/18/19 04/18/19 [Enalapril-Hctz 10-25 mg Tablet] HYDROcodone/APAP 10-325MG [[place] 1 tab PO Q4HR PRN 04/18/19 04/18/19 10-325] Isosorbide Mononitrate ER [Imdur] 60 mg PO DAILY 04/18/19 04/18/19 Levothyroxine Sodium [Synthroid] 50 mcg PO DAILY 04/18/19 04/18/19 Multivitamins, Thera [Multivitamin 1 tab PO DAILY 04/18/19 04/18/19 (formulary)] Tamsulosin [Flomax] 0.4 mg PO BID 04/18/19 04/18/19 Allergies Allergy/AdvReac Type Severity Reaction Status Date / Time No Known Allergies Allergy Verified 10/11/19 16:32 Review of Systems ROS Statement: Those systems with pertinent positive or pertinent negative responses have been documented in the HPI. ROS Other: All systems not noted in ROS Statement are negative. Past Medical History Past Medical History: Hyperlipidemia, Hypertension History of Any Multi-Drug Resistant Organisms: None Reported Past Surgical History: Joint Replacement Past Anesthesia/Blood Transfusion Reactions: No Reported Reaction Past Psychological History: No Psychological Hx Reported Smoking Status: Never smoker Past Alcohol Use History: None Reported Past Drug Use History: None Reported - Past Family History Mother Family Medical History: No Reported History General Exam - General Exam Comments Initial Comments: GENERAL: Well-appearing, well-nourished and in no acute distress. HEAD: Atraumatic, normocephalic. EYES: Pupils equal round and reactive to light, extraocular movements intact, sclera anicteric, conjunctiva are normal. ENT: TMs normal, nares patent, oropharynx clear without exudates. Moist mucous membranes. NECK: Normal range of motion, supple without lymphadenopathy or JVD. LUNGS: Breath sounds clear to auscultation bilaterally and equal. No wheezes rales or rhonchi. HEART: Regular rate and rhythm without murmurs, rubs or gallops. ABDOMEN: Tender to palpation of the right inguinal area with noted bulge. Soft, nontender, normoactive bowel sounds. No guarding, no rebound. No masses appreciated. EXTREMITIES: Normal range of motion, no pitting or edema. No clubbing or cyanosis. NEUROLOGICAL: Cranial nerves II through XII grossly intact. Normal speech, normal gait. PSYCH: Normal mood, normal affect. SKIN: Warm, Dry, normal turgor, no rashes or lesions noted. Limitations: no limitations exam: Present: scrotal swelling (Right-sided). Absent: urethral discharge Course Vital Signs 10/11/19 16:30 Temperature 98.4 F Pulse Rate 63 Respiratory 16 Rate Blood Pressure 127/60 O2 Sat by Pulse 100 Oximetry - Reevaluation(s) Reevaluation #1: 10/11/19 19:34 Dr. Catherine is here to evaluate the patient. Medical Decision Making - Medical Decision Making Patient is an 89-year-old male presenting with right groin pain with sudden onset approximately 2 hours before arrival. Patient has history of hernia. Ultrasound of the right groin reveals a right-sided inguinal and scrotal hernia that contains bowel. Right-sided hydrocele as well. There is no evidence of testicular torsion. KUB shows no signs of obstruction. Case was discussed with Dr. Moore. Dr. Catherine was contacted for consultation. Dr. Catherine was able to reduce the hernia. Patient is stable for discharge at this time. Patient will follow up with Dr. Catherine after getting cardiac clearance from his medical device assembler for repair. Patient's agreement with this plan of care. Return parameters were discussed with the patient he verbalizes understanding. Disposition Clinical Impression: Reducible right inguinal hernia Disposition: HOME SELF-CARE Condition: Stable Instructions (If sedation given, give patient instructions): Inguinal Hernia (ED) Additional Instructions: Please return to the Emergency Department if symptoms worsen or any other concerns. Follow-up with Dr. Catherine as discussed after seeing medical device assembler. Is patient prescribed a controlled substance at d/c from ED?: No Referrals: Kristi Huerta DO [Primary Care Provider] - 1-2 days Jeanna Catherine DO [Doctor of Osteopathic Medicine] - 1-2 days
--- NOTE | 2019-10-11 18:20 | XR ---
EXAMINATION TYPE: XR KUB DATE OF EXAM: 10/11/2019 COMPARISON: NONE HISTORY: Pain TECHNIQUE: 2 views FINDINGS: Bowel gas pattern is normal. There is no sign of intestinal obstruction or pneumoperitoneum . Fecal pattern is normal. There are no pathologic calcifications over the kidneys. IMPRESSION: Nonacute abdomen.
[2019-10-11] MEDS ORDERED: MORPHINE SULFATE 4 MG/ML SYRINGE IVP STA (19:15)
--- NOTE | 2019-10-11 19:56 | P.GSHP ---
History of Present Illness H&P Date: 10/11/19 Chief Complaint: Hernia The patient is an 89 year old man with a known history of hernia. He was hospitalized in March with similar complaints, at that time the hernia spontaneously reduced. It will bother him occasionally, but it persisted with a lump today. Denies nausea or vomitint, fever or chills - Review of Systems All systems: negative Past Medical History Past Medical History: Hyperlipidemia, Hypertension Additional Past Medical History / Comment(s): cardiac arrhythmia- sees Dr Orta History of Any Multi-Drug Resistant Organisms: None Reported Past Surgical History: Joint Replacement Additional Past Surgical History / Comment(s): Possible stenting of left carotid stenosis Past Anesthesia/Blood Transfusion Reactions: No Reported Reaction Past Psychological History: No Psychological Hx Reported Smoking Status: Never smoker Past Alcohol Use History: None Reported Past Drug Use History: None Reported - Past Family History Mother Family Medical History: No Reported History Medications and Allergies Home Medications Medication Instructions Recorded Confirmed Type Aspirin EC [Ecotrin Low Dose] 81 mg PO DAILY 04/18/19 04/18/19 History Atorvastatin [Lipitor] 20 mg PO DAILY 04/18/19 04/18/19 History Enalapril/Hydrochlorothiazide 1 tab PO DAILY 04/18/19 04/18/19 History [Enalapril-Hctz 10-25 mg Tablet] HYDROcodone/APAP 10-325MG [[place] 1 tab PO Q4HR PRN 04/18/19 04/18/19 History 10-325] Isosorbide Mononitrate ER [Imdur] 60 mg PO DAILY 04/18/19 04/18/19 History Levothyroxine Sodium [Synthroid] 50 mcg PO DAILY 04/18/19 04/18/19 History Multivitamins, Thera [Multivitamin 1 tab PO DAILY 04/18/19 04/18/19 History (formulary)] Tamsulosin [Flomax] 0.4 mg PO BID 04/18/19 04/18/19 History Allergies Allergy/AdvReac Type Severity Reaction Status Date / Time No Known Allergies Allergy Verified 10/11/19 16:32 Surgical - Exam Osteopathic Statement: *. No significant issues noted on an osteopathic structural exam other than those noted in the History and Physical/Consult. Vital Signs Temp Pulse Resp BP Pulse Ox 98.4 F 63 16 127/60 100 10/11/19 16:30 10/11/19 16:30 10/11/19 16:30 10/11/19 16:30 10/11/19 16:30 - General well developed, well nourished, no distress - Eyes normal ocular movement - Neck trachea midline - Respiratory normal expansion, clear to auscultation - Cardiovascular Rhythm: regularly irregular (seems to skip a beat every 3-4 beats) Abnormal Heart Sounds: systolic murmur - Abdomen Abdomen: soft, bowel sounds Hernia: inguinal (inguinal hernia reduced after getting a dose of MS IVP) - Psychiatric oriented to time, oriented to person, oriented to place, speech is normal, memory intact Results - Imaging US - abdomen: report reviewed Assessment and Plan (1) Inguinal hernia of right side without obstruction or gangrene Current Visit: Yes Status: Acute Code(s): K40.90 - UNIL INGUINAL HERNIA, W/O OBST OR GANGR, NOT SPCF RECUR SNOMED Code(s): 317681844 (2) Cardiac arrhythmia Current Visit: Yes Status: Acute Code(s): I49.9 - CARDIAC ARRHYTHMIA, UNSPECIFIED SNOMED Code(s): 110438134 Plan: The hernia did reduce. He has an appointment with Dr Orta next week. I asked them to ask Dr Orta to give cardiac clearance for surgery, then they can call and schedule elective hernia repair. Questions were encouraged and answered.
[2019-10-11 20:58] VITALS: BP 139/64; PULSE 56; RESP 20; TEMP 98.1
== END 2019-10-11 20:37 | disposition home or self-care (01) ==
LOC: EC 16:18
DX: K40.90 Unilateral inguinal hernia, without obstruction or gangrene, not specified as recurrent (principal); N43.3 Hydrocele, unspecified; E78.5 Hyperlipidemia, unspecified; I10 Essential (primary) hypertension; Z79.82 Long term (current) use of aspirin; Z79.899 Other long term (current) drug therapy; Z79.890 Hormone replacement therapy
CPT/HCPCS: 74018; 76882; 96374; 99284; J2270

== ENCOUNTER → 2020-04-28 | Outpatient (CLI) | payer MEDICARE, BC ==
[2020-04-28 17:26] LABS: African American GFR (CKD) 56.5 (60.0-200.0); Albumin 4.2 g/dL (3.80-4.90); Albumin/Globulin Ratio 2.1 (1.60-3.17); Anion Gap 5.4 mmol/L (4.00-12.00); BUN/Creat Ratio 20.77 Ratio (12.00-20.00); Calcium 8.5 mg/dL (8.7-10.3); Carbon Dioxide 28.6 mmol/L (21.6-31.8); Chol/HDL Ratio 2.34; LDL Cholesterol,Calculated 54.4 mg/dL (0.0-131.0); Non-African American GFR(CKD) 48.7 (60.0-200.0); Potassium 4.4 mmol/L (3.5-5.5); Total Bilirubin 0.5 mg/dL (0.3-1.2); Total Protein 6.2 g/dL (6.2-8.2); VLDL Calculation 12.6 mg/dL (5.00-40.00)
== END | disposition home or self-care (01) ==
LOC: LABWHC1 09:45
PROVIDERS: ATTEND Internal Medicine Interventional Cardiology
DX: I10 Essential (primary) hypertension (principal); E78.2 Mixed hyperlipidemia
CPT/HCPCS: 36415; 80053; 80061

== ENCOUNTER 2020-09-15 15:59 | Inpatient (IN) | payer MEDICARE, BC ==
--- NOTE | 2020-09-15 16:22 | ED ---
General Adult HPI - General Chief complaint: Recheck/Abnormal Lab/Rx Stated complaint: abnormal EKG Time Seen by Provider: 09/15/20 16:08 Source: patient Mode of arrival: wheelchair Limitations: no limitations - History of Present Illness Initial comments: Dictation was produced using [employer] dictation software. please excuse any grammatical, word or spelling errors. This patient was cared for during a federal and state declared state of emergen cy secondary to Covid 19 Chief Complaint: 89-year-old male with past medical history dyslipidemia, hypertension presents today with abnormal EKG History of Present Illness: 89-year-old male presents to the emergency Department with abnormal EKG. Patient states for the last week or so he's been feeling exertional dyspnea and weakness to his lower extremities. He went to his primary care physician Dr. Lake where he was evaluated. An EKG was performed and patient was found to be significantly bradycardic with a heart rate of 38. Patient states at rest he feels rather well. He states that most of his symptoms occur during exertion. Patient has any pain complaints at this time. No chest pain. Denies any shortness of breath currently. No chest pain over the last week. He is accompanied by his daughter. Patient does not take any blood thinning medications. He does not take any cardioactive medications. He does take atenolol. According to daughter at bedside Dr. Lake called the avionics installer Dr. Orta and Dr. Orta instructed patient to come to the emergency department. The ROS documented in this emergency department record has been reviewed and confirmed by me. Those systems with pertinent positive or negative responses have been documented in the HPI. All other systems are other negative and/or noncontributory. PHYSICAL EXAM: General Impression: Alert and oriented x3, not in acute distress HEENT: Normocephalic atraumatic, extra-ocular movements intact, pupils equal and reactive to light bilaterally, mucous membranes moist. Cardiovascular: Heart regular rate and rhythm, grade 1 regurgitation murmur Chest: Able to complete full sentences, no retractions, no tachypnea Abdomen: abdomen soft, non-tender, non-distended, no organomegaly Musculoskeletal: Pulses present and equal in all extremities, no peripheral edema Motor: no focal deficits noted Neurological: CN II-XII grossly intact, no focal motor or sensory deficits noted Skin: Intact with no visualized rashes Psych: Normal affect and mood ED course: 89-year-old male presents with bradycardia. Vital signs upon arrival shows heart rate of 54, oxygen saturation 92. Temperature 97.1. Patient is well-appearing at bedside. He is joking with me and nursing staff. Laboratory evaluation obtained. CBC, coag panel, metabolic panel. CBC baseline. Chest x-ray is unremarkable. Patient observed emergency department continues to be persistently bradycardic. Case is discussed with Dr. Martínez has no specific recommendations at this time however they will be happy to consult on him. Case was discussed with Dr. Tubbs was went except patient care. Given patient's EKG findings and bradycardia we will have patient mid to the ICU. Case was discussed with Dr. Jaquez was went except patient's care to the intensive care unit. Family and patient were notified of the disposition and they are agreeable. EKG interpretation: Ventricular rate 30, sinus bradycardia, QRS 116, QTc 437. There is AV dissociation. P waves march separately from QRS waves.. No CT prolongation, no QTC prolongation, no ST or T-wave changes noted. - Related Data Home Medications Medication Instructions Recorded Confirmed Aspirin EC [Ecotrin Low Dose] 81 mg PO DAILY 04/18/19 09/15/20 Atorvastatin [Lipitor] 20 mg PO DAILY 04/18/19 09/15/20 Enalapril/Hydrochlorothiazide 1 tab PO DAILY 04/18/19 09/15/20 [Enalapril/Hydrochlorothiazide 10-25 mg Tablet] HYDROcodone/APAP 10-325MG [[place] 1 tab PO Q4H PRN 04/18/19 09/15/20 10-325] Isosorbide Mononitrate ER [Imdur] 60 mg PO DAILY 04/18/19 09/15/20 Tamsulosin [Flomax] 0.8 mg PO HS 04/18/19 09/15/20 Atenolol(Unknown Dose) 1 tab PO DAILY 09/15/20 09/15/20 Multivit-Min/FA/Lycopen/Lutein 1 tab PO DAILY 09/15/20 09/15/20 [Centrum Silver Tablet] Allergies Allergy/AdvReac Type Severity Reaction Status Date / Time No Known Allergies Allergy Verified 09/15/20 18:06 Review of Systems ROS Statement: Those systems with pertinent positive or pertinent negative responses have been documented in the HPI. ROS Other: All systems not noted in ROS Statement are negative. Past Medical History Past Medical History: Hyperlipidemia, Hypertension Additional Past Medical History / Comment(s): cardiac arrhythmia- sees Dr Orta History of Any Multi-Drug Resistant Organisms: None Reported Past Surgical History: Joint Replacement Additional Past Surgical History / Comment(s): Possible stenting of left carotid stenosis Past Anesthesia/Blood Transfusion Reactions: No Reported Reaction Past Psychological History: No Psychological Hx Reported Smoking Status: Never smoker Past Alcohol Use History: None Reported Past Drug Use History: None Reported - Past Family History Mother Family Medical History: No Reported History General Exam Limitations: no limitations Course Vital Signs 09/15/20 09/15/20 09/15/20 16:00 16:22 17:00 Temperature 97.1 F L Pulse Rate 54 L 37 L 36 L Respiratory 16 18 18 Rate Blood Pressure 132/47 140/56 105/67 O2 Sat by Pulse 92 L 99 99 Oximetry Medical Decision Making - Lab Data Result diagrams: 09/15/20 16:42 09/15/20 16:42 Lab Results 09/15/20 09/15/20 09/15/20 Range/Units 16:42 16:42 16:42 WBC 4.8 (3.8-10.6) k/uL RBC 3.01 L (4.30-5.90) m/uL Hgb 9.9 L (13.0-17.5) gm/dL Hct 30.0 L (39.0-53.0) % MCV 99.6 (80.0-100.0) fL MCH 33.0 (25.0-35.0) pg MCHC 33.1 (31.0-37.0) g/dL RDW 13.2 (11.5-15.5) % Plt Count 160 (150-450) k/uL Neutrophils % 73 % Lymphocytes % 15 % Monocytes % 8 % Eosinophils % 2 % Basophils % 1 % Neutrophils # 3.5 (1.3-7.7) k/uL Lymphocytes # 0.7 L (1.0-4.8) k/uL Monocytes # 0.4 (0-1.0) k/uL Eosinophils # 0.1 (0-0.7) k/uL Basophils # 0.0 (0-0.2) k/uL PT 10.1 (9.0-12.0) sec INR 1.0 (<1.2) APTT 24.4 (22.0-30.0) sec Sodium 141 (137-145) mmol/L Potassium 4.5 (3.5-5.1) mmol/L Chloride 105 (98-107) mmol/L Carbon Dioxide 28 (22-30) mmol/L Anion Gap 8 mmol/L BUN 58 H (9-20) mg/dL Creatinine 1.90 H (0.66-1.25) mg/dL Est GFR (CKD-EPI)AfAm 35 (>60 ml/min/1.73 sqM) Est GFR (CKD-EPI)NonAf 31 (>60 ml/min/1.73 sqM) Glucose 140 H (74-99) mg/dL Calcium 8.6 (8.4-10.2) mg/dL Ionized Calcium Chris 4.3 L (4.5-5.3) mg/dL Magnesium 3.1 H (1.6-2.3) mg/dL Total Bilirubin 0.6 (0.2-1.3) mg/dL AST 35 (17-59) U/L ALT 19 (4-49) U/L Alkaline Phosphatase 82 (38-126) U/L Troponin I (0.000-0.034) ng/mL Total Protein 6.5 (6.3-8.2) g/dL Albumin 3.9 (3.5-5.0) g/dL TSH 7.190 H (0.465-4.680) mIU/L 09/15/20 Range/Units 16:42 WBC (3.8-10.6) k/uL RBC (4.30-5.90) m/uL Hgb (13.0-17.5) gm/dL Hct (39.0-53.0) % MCV (80.0-100.0) fL MCH (25.0-35.0) pg MCHC (31.0-37.0) g/dL RDW (11.5-15.5) % Plt Count (150-450) k/uL Neutrophils % % Lymphocytes % % Monocytes % % Eosinophils % % Basophils % % Neutrophils # (1.3-7.7) k/uL Lymphocytes # (1.0-4.8) k/uL Monocytes # (0-1.0) k/uL Eosinophils # (0-0.7) k/uL Basophils # (0-0.2) k/uL PT (9.0-12.0) sec INR (<1.2) APTT (22.0-30.0) sec Sodium (137-145) mmol/L Potassium (3.5-5.1) mmol/L Chloride (98-107) mmol/L Carbon Dioxide (22-30) mmol/L Anion Gap mmol/L BUN (9-20) mg/dL Creatinine (0.66-1.25) mg/dL Est GFR (CKD-EPI)AfAm (>60 ml/min/1.73 sqM) Est GFR (CKD-EPI)NonAf (>60 ml/min/1.73 sqM) Glucose (74-99) mg/dL Calcium (8.4-10.2) mg/dL Ionized Calcium Chris (4.5-5.3) mg/dL Magnesium (1.6-2.3) mg/dL Total Bilirubin (0.2-1.3) mg/dL AST (17-59) U/L ALT (4-49) U/L Alkaline Phosphatase (38-126) U/L Troponin I 0.030 (0.000-0.034) ng/mL Total Protein (6.3-8.2) g/dL Albumin (3.5-5.0) g/dL TSH (0.465-4.680) mIU/L Critical Care Time Critical Care Time: Yes Total Critical Care Time: 33 Disposition Clinical Impression: Bradycardia Disposition: ADMITTED IP TO THIS [facility] Condition: Critical Referrals: Kristi Lake DO [Primary Care Provider] - 1-2 days Decision Time: 19:07
[2020-09-15 16:56] LABS: Basophils % (A) 1 %; Eosinophils # (A) 0.1 k/uL (0-0.7); Eosinophils % (A) 2 %; HGB 9.9 gm/dL (13.0-17.5); Lymphocytes # (A) 0.7 k/uL (1.0-4.8); Lymphocytes % (A) 15 %; MCHC 33.1 g/dL (31.0-37.0); MCV 99.6 fL (80.0-100.0); Mean Platelet Volume 7.6; Monocytes # (A) 0.4 k/uL (0-1.0); Monocytes % (A) 8 %; Neutrophils # (A) 3.5 k/uL (1.3-7.7); Neutrophils % (A) 73 %; Platelet Count 160 k/uL (150-450); RBC 3.01 m/uL (4.30-5.90); RDW 13.2 % (11.5-15.5); WBC 4.8 k/uL (3.8-10.6)
--- NOTE | 2020-09-15 16:57 | XR ---
EXAMINATION TYPE: XR chest 1V portable DATE OF EXAM: 09/15/2020 COMPARISON: 04/18/2019. HISTORY: Abnormal EKG. TECHNIQUE: Single frontal view of the chest is obtained. FINDINGS: There is no focal air space opacity, pleural effusion, or pneumothorax seen. The cardiac silhouette size is enlarged. The osseous structures are intact. IMPRESSION: No acute process. Cardiomegaly.
[2020-09-15 17:02] LABS: Albumin 3.9 g/dL (3.5-5.0); Calcium 8.6 mg/dL (8.4-10.2); Magnesium 3.1 mg/dL (1.6-2.3); Potassium 4.5 mmol/L (3.5-5.1); Total Bilirubin 0.6 mg/dL (0.2-1.3); Total Protein 6.5 g/dL (6.3-8.2)
[2020-09-15 17:04] LABS: Partial Thromboplastin Time 24.4 sec (22.0-30.0); Prothrombin Time 10.1 sec (9.0-12.0)
[2020-09-15 17:12] LABS: Ionized Calcium 4.3 mg/dL (4.5-5.3)
[2020-09-15] MEDS ORDERED: NALOXONE 0.4 MG/ML 1 ML VIAL IV PRN (19:01)
[2020-09-15] MEDS ORDERED: ACETAMINOPHEN TAB 325 MG TAB PO PRN (19:01)
[2020-09-15] MEDS: SODIUM CHLORIDE 0.9% 1,000 ML IV SCH (23:26)
[2020-09-16] MEDS: SODIUM CHLORIDE 0.9% 1,000 ML IV SCH (05:41)
[2020-09-16 05:53] LABS: HCT 28.2 % (39.0-53.0); HGB 9.4 gm/dL (13.0-17.5); MCH 33.4 pg (25.0-35.0); MCHC 33.5 g/dL (31.0-37.0); MCV 99.9 fL (80.0-100.0); Mean Platelet Volume 7.4; Platelet Count 140 k/uL (150-450); RBC 2.82 m/uL (4.30-5.90); RDW 13.1 % (11.5-15.5); WBC 5.1 k/uL (3.8-10.6)
[2020-09-16 06:02] LABS: Albumin 3.4 g/dL (3.5-5.0); Calcium 8.3 mg/dL (8.4-10.2); Magnesium 2.9 mg/dL (1.6-2.3); Phosphorus 3.8 mg/dL (2.5-4.5); Potassium 4.2 mmol/L (3.5-5.1); Total Bilirubin 0.5 mg/dL (0.2-1.3); Total Protein 5.7 g/dL (6.3-8.2)
[2020-09-16] MEDS ORDERED: LEVOTHYROXINE 75 MCG TAB PO SCH (09:00)
[2020-09-16] MEDS ORDERED: SODIUM CHLORIDE 0.9% 1,000 ML IV SCH ×3 (09:45→19:00)
--- NOTE | 2020-09-16 09:45 | P.CNPUL ---
History of Present Illness Consult date: 09/16/20 Requesting physician: Natalie Tubbs Reason for consult: other (Critical care management) Chief complaint: Generalized weakness, fatigue History of present illness: This is a very pleasant 89-year-old gentleman who follows Dr. Lake as his primary care provider. He has a history of hypertension, hyperlipidemia, BPH. He presented to his PCPs office yesterday with complaints of increasing weak ness, fatigue, dyspnea on exertion. EKG there revealed bradycardia in the 30s. He contacted his chief technologist who referred him here to the emergency room. Upon arrival he was found to be in complete heart block with a heart rate in the 30s and was admitted to the intensive care unit for the same. Seen today in consultation. He is awake and alert in no acute distress. Remains in complete heart block. Blood pressure stable currently. No dizziness or lightheadedness. No chest pain. No worsening shortness of breath at rest. White count 5.1. Hemoglobin 9.4. Platelets 140. Sodium 139. Potassium 4.2. Creatinine 1.59. Magnesium 2.9. Troponin 0.03. TSH 7.19. Chest x-ray reveals no acute pulmonary process. Echocardiogram pending. Cardiology consult pending. Review of Systems REVIEW OF SYSTEMS: CONSTITUTIONAL: Generalized weakness, fatigue, dyspnea on exertion. Denies any recent significant weight loss or weight gain. EYES: Denies change in vision. EARS, NOSE, MOUTH, THROAT: Denies headaches, denies sore throat. CARDIOVASCULAR: Denies chest pain, palpitations or syncopal episodes. RESPIRATORY: Shortness of breath on exertion, no cough, congestion or hemoptysis. GASTROINTESTINAL: Denies change in appetite, denies abdominal pain GENITOURINARY: Denies hematuria, denies infections. MUSKULOSKELETAL: Weakness of the lower extremities. Denies pain, denies swelling. INTEGUMENTARY: Denies rash, denies eczema. NEUROLOGICAL: Denies recent memory loss, no recent seizure activity. PSYCHIATRIC: Denies anxiety, denies depression. HEMATOLOGIC/LYMPHATIC: Denies anemia, denies enlarged lymph nodes. Past Medical History Past Medical History: Hyperlipidemia, Hypertension Additional Past Medical History / Comment(s): cardiac arrhythmia- sees Dr Orta History of Any Multi-Drug Resistant Organisms: None Reported Past Surgical History: Joint Replacement Additional Past Surgical History / Comment(s): Possible stenting of left carotid stenosis Past Anesthesia/Blood Transfusion Reactions: No Reported Reaction Past Psychological History: No Psychological Hx Reported Smoking Status: Former smoker Past Alcohol Use History: None Reported Past Drug Use History: None Reported - Past Family History Mother Family Medical History: No Reported History Medications and Allergies Home Medications Medication Instructions Recorded Confirmed Type Aspirin EC [Ecotrin Low Dose] 81 mg PO DAILY 04/18/19 09/15/20 History Atorvastatin [Lipitor] 20 mg PO DAILY 04/18/19 09/15/20 History Enalapril/Hydrochlorothiazide 1 tab PO DAILY 04/18/19 09/15/20 History [Enalapril/Hydrochlorothiazide 10-25 mg Tablet] HYDROcodone/APAP 10-325MG [[place] 1 tab PO Q4H PRN 04/18/19 09/15/20 History 10-325] Isosorbide Mononitrate ER [Imdur] 60 mg PO DAILY 04/18/19 09/15/20 History Tamsulosin [Flomax] 0.8 mg PO HS 04/18/19 09/15/20 History Multivit-Min/FA/Lycopen/Lutein 1 tab PO DAILY 09/15/20 09/15/20 History [Centrum Silver Tablet] Allergies Allergy/AdvReac Type Severity Reaction Status Date / Time No Known Allergies Allergy Verified 09/15/20 18:06 Physical Exam Vitals: Vital Signs Temp Pulse Resp BP Pulse Ox 09/16/20 07:00 35 L 11 L 160/63 95 09/16/20 06:30 35 L 16 147/56 98 09/16/20 06:00 34 L 20 151/61 97 09/16/20 05:30 38 L 18 137/58 95 09/16/20 05:00 37 L 12 132/52 97 09/16/20 04:30 33 L 12 122/51 96 09/16/20 04:00 97.6 F 33 L 19 106/46 97 09/16/20 03:30 33 L 15 142/57 88 L 09/16/20 03:00 33 L 12 148/59 89 L 09/16/20 02:30 37 L 11 L 157/60 84 L 09/16/20 02:00 39 L 14 154/62 85 L 09/16/20 01:30 35 L 12 152/63 95 10/22/20 01:00 35 L 14 144/57 95 09/16/20 00:30 33 L 16 144/57 97 09/16/20 00:00 34 L 16 160/53 92 L 09/15/20 23:30 38 L 18 160/53 96 09/15/20 23:12 35 L 14 95 09/15/20 23:00 97.9 F 38 L 21 160/53 90 L 09/15/20 22:30 35 L 20 97 09/15/20 22:02 23 09/15/20 21:00 98.1 F 34 L 18 156/66 95 09/15/20 19:50 97.9 F 34 L 18 145/59 97 09/15/20 18:00 34 L 18 115/70 96 09/15/20 17:00 36 L 18 105/67 99 09/15/20 16:22 37 L 18 140/56 99 09/15/20 16:00 97.1 F L 54 L 16 132/47 92 L Intake and Output 09/15/20 09/16/20 09/16/20 22:59 06:59 14:59 Intake Total 100 800 100 Output Total 300 200 400 Balance -200 600 -300 Intake: IV 100 800 100 Sodium Chloride 0.9% 1, 100 800 100 000 ml @ 100 mls/hr IV . Q10H [facility] Rx#:[id number] Output: Urine 300 200 400 Other: Voiding Method Urinal # Voids 1 0 2 Weight 72.575 kg 73 kg GENERAL EXAM: Alert, pleasant 89-year-old gentleman, on 2 L nasal cannula, comfortable in no apparent distress. HEAD: Normocephalic. EYES: Normal reaction of pupils, equal size. NOSE: Clear with pink turbinates. THROAT: No erythema or exudates. NECK: No masses, no JVD. CHEST: No chest wall deformity. LUNGS: Equal air entry with no crackles, wheeze, rhonchi or dullness. CVS: S1 and S2 normal with no audible murmur, bradycardic. ABDOMEN: No hepatosplenomegaly, normal bowel sounds, no guarding or rigidity. SPINE: No scoliosis or deformity SKIN: No rashes CENTRAL NERVOUS SYSTEM: No focal deficits, tone is normal in all 4 extremities. EXTREMITIES: There is no peripheral edema. No clubbing, no cyanosis. Peripheral pulses are intact. Results - Laboratory Findings CBC and BMP: 09/16/20 05:01 09/16/20 05:01 PT/INR, D-dimer PT 10.1 sec (9.0-12.0) 09/15/20 16:42 INR 1.0 (<1.2) 09/15/20 16:42 Abnormal lab findings: Abnormal Labs 09/15/20 09/15/20 09/16/20 16:42 16:42 05:01 RBC 3.01 L 2.82 L Hgb 9.9 L 9.4 L Hct 30.0 L 28.2 L Plt Count 140 L Lymphocytes # 0.7 L Chloride BUN 58 H Creatinine 1.90 H Glucose 140 H Calcium Ionized Calcium Chris 4.3 L Magnesium 3.1 H Total Protein Albumin TSH 7.190 H 09/16/20 05:01 RBC Hgb Hct Plt Count Lymphocytes # Chloride 108 H BUN 46 H Creatinine 1.59 H Glucose 103 H Calcium 8.3 L Ionized Calcium Chris Magnesium 2.9 H Total Protein 5.7 L Albumin 3.4 L TSH - Diagnostic Findings Chest x-ray: image reviewed (No acute pulmonary process.) Assessment and Plan Assessment: 1 Generalized weakness, dyspnea on exertion and fatigue secondary to bradycardia from complete heart block 2 Hypothyroid 3 Acute renal failure 4 Anemia 5 Hypertension 6 Hyperlipidemia 7 History of right inguinal hernia 8 Benign prostatic hypertrophy Plan: The patient was seen and evaluated by Dr. Hammer Currently stable from the pulmonary and critical care standpoint Add Synthroid 75 g daily Echocardiogram pending Cardiology consultation pending We'll continue to follow I, the cosigning physician, performed a history & physical examination of the patient. Lungs sounds are clear. Maintaining good O2 saturations in the 90s on room air. I discussed the assessment and plan of care with my nurse practitioner, Esthela Cross. I attest to the above consultation as dictated by her. Time with Patient: Greater than 30
[2020-09-16] MEDS: HEPARIN SODIUM,PORCINE 5,000 UNIT/ML 1 ML VIAL SQ SCH ×2 (09:49→20:24)
[2020-09-16] MEDS: amLODIPine 5 MG TAB PO SCH (09:49)
--- NOTE | 2020-09-16 10:22 | P.CRDCN ---
History of Present Illness Consult date: 09/16/20 Reason for Consult (text): High degree AV block Chief complaint: Exertional dyspnea, weakness to lower extremities History of present illness: This is a pleasant 89-year-old gentleman who follows with Dr. Orta in the office. His last office visit was in May of this year. He has a known history of hypertension, hyperlipidemia, peripheral vascular disease, nicotine dependence, coronary artery disease with prior stent placements. His first stent was placed in 2005, to the circumflex and RCA, most recent stent was in 2010 at which time patient had mid RCA stented. He presented to the hospital on this occasion with symptoms of exertional dyspnea as well as profound weakness in his lower extremities. His chest x-ray on presentation here did not reveal any acute process. His EKG showed marked sinus bradycardia with A-V dissociation and junctional bradycardia with associated right bundle branch block pattern. Patient's home medications prior to coming to the hospital include Lipitor 10 mg daily, Imdur 60 mg daily, atenolol 25 mg daily, enalapril 5 mg daily, baby aspirin daily, Flomax 0.5 mg daily. His atenolol at present continues to be on hold. His blood pressure 160/60 with a heart rate in the 30s, 95% on room air. White blood cell count on admission 4.8, hemoglobin 9.9, platelet count 160, sodium 141, potassium 4.5, BUN 58 with a creatinine of 1.9, magnesium 3.12 days labs White blood cell count 5.1, hemoglobin 9.4, platelet count 140 sodium 139, potassium 4.2, BUN 46, creatinine 1.5 magnesium 2.[address] Sarita Martínez had a lengthy discussion with the patient, and also spoke with his daughter on the phone, advising that the patient undergo implantation of a permanent pacemaker. The associated risk and potential complications of the procedure were discussed in detail with the patient and his daughter. This will be performed today around 1:00. Past Medical History Past Medical History: Hyperlipidemia, Hypertension Additional Past Medical History / Comment(s): cardiac arrhythmia- sees Dr Orta History of Any Multi-Drug Resistant Organisms: None Reported Past Surgical History: Joint Replacement Additional Past Surgical History / Comment(s): Possible stenting of left carotid stenosis Past Anesthesia/Blood Transfusion Reactions: No Reported Reaction Past Psychological History: No Psychological Hx Reported Smoking Status: Former smoker Past Alcohol Use History: None Reported Past Drug Use History: None Reported - Past Family History Mother Family Medical History: No Reported History Medications and Allergies Home Medications Medication Instructions Recorded Confirmed Type Aspirin EC [Ecotrin Low Dose] 81 mg PO DAILY 04/18/19 09/15/20 History Atorvastatin [Lipitor] 20 mg PO DAILY 04/18/19 09/15/20 History Enalapril/Hydrochlorothiazide 1 tab PO DAILY 04/18/19 09/15/20 History [Enalapril/Hydrochlorothiazide 10-25 mg Tablet] HYDROcodone/APAP 10-325MG [[place] 1 tab PO Q4H PRN 04/18/19 09/15/20 History 10-325] Isosorbide Mononitrate ER [Imdur] 60 mg PO DAILY 04/18/19 09/15/20 History Tamsulosin [Flomax] 0.8 mg PO HS 04/18/19 09/15/20 History Multivit-Min/FA/Lycopen/Lutein 1 tab PO DAILY 09/15/20 09/15/20 History [Centrum Silver Tablet] Allergies Allergy/AdvReac Type Severity Reaction Status Date / Time No Known Allergies Allergy Verified 09/15/20 18:06 Physical Exam Vitals: Vital Signs Temp Pulse Resp BP Pulse Ox 09/16/20 07:00 35 L 11 L 160/63 95 09/16/20 06:30 35 L 16 147/56 98 09/16/20 06:00 34 L 20 151/61 97 09/16/20 05:30 38 L 18 137/58 95 09/16/20 05:00 37 L 12 132/52 97 09/16/20 04:30 33 L 12 122/51 96 09/16/20 04:00 97.6 F 33 L 19 106/46 97 09/16/20 03:30 33 L 15 142/57 88 L 09/16/20 03:00 33 L 12 148/59 89 L 09/16/20 02:30 37 L 11 L 157/60 84 L 09/16/20 02:00 39 L 14 154/62 85 L 09/16/20 01:30 35 L 12 152/63 95 09/16/20 01:00 35 L 14 144/57 95 09/16/20 00:30 33 L 16 144/57 97 10/22/20 00:00 34 L 16 160/53 92 L 09/15/20 23:30 38 L 18 160/53 96 09/15/20 23:12 35 L 14 95 09/15/20 23:00 97.9 F 38 L 21 160/53 90 L 09/15/20 22:30 35 L 20 97 09/15/20 22:02 23 09/15/20 21:00 98.1 F 34 L 18 156/66 95 09/15/20 19:50 97.9 F 34 L 18 145/59 97 09/15/20 18:00 34 L 18 115/70 96 09/15/20 17:00 36 L 18 105/67 99 09/15/20 16:22 37 L 18 140/56 99 09/15/20 16:00 97.1 F L 54 L 16 132/47 92 L Intake and Output 09/15/20 09/16/20 09/16/20 22:59 06:59 14:59 Intake Total 100 800 100 Output Total 300 200 400 Balance -200 600 -300 Intake: IV 100 800 100 Sodium Chloride 0.9% 1, 100 800 100 000 ml @ 100 mls/hr IV . Q10H [facility] Rx#:[id number] Output: Urine 300 200 400 Other: Voiding Method Urinal # Voids 1 0 2 Weight 72.575 kg 73 kg PHYSICAL EXAMINATION: GENERAL: 89-year-old gentleman in no acute distress at the time of my examination HEENT: Head is atraumatic, normocephalic. Pupils equal, round. Sclera anicteric. Conjunctiva are clear. Mucous membranes of the mouth are moist. Neck is supple. There is no elevated jugular venous pressure. No carotid bruit is heard. HEART EXAMINATION: Heart S1 S2 1 systolic ejection murmur is heard at the base CHEST EXAMINATION: Lungs are clear to auscultation and precussion. No chest wall tenderness is noted on palpation or with deep breathing. ABDOMEN: Soft, nontender. Bowel sounds are heard. No organomegaly noted. EXTREMITIES: 2+ peripheral pulses with no evidence of peripheral edema and no calf tenderness noted. NEUROLOGIC patient is awake, alert and oriented 3 . . Results 09/16/20 05:01 09/16/20 05:01 Cardiac Enzymes 09/15/20 09/15/20 09/16/20 Range/Units 16:42 16:42 05:01 AST 35 24 (17-59) U/L Troponin I 0.030 (0.000-0.034) ng/mL Coagulation 09/15/20 Range/Units 16:42 PT 10.1 (9.0-12.0) sec APTT 24.4 (22.0-30.0) sec CBC 09/15/20 09/16/20 Range/Units 16:42 05:01 WBC 4.8 5.1 (3.8-10.6) k/uL RBC 3.01 L 2.82 L (4.30-5.90) m/uL Hgb 9.9 L 9.4 L (13.0-17.5) gm/dL Hct 30.0 L 28.2 L (39.0-53.0) % Plt Count 160 140 L (150-450) k/uL Comprehensive Metabolic Panel 09/15/20 09/16/20 Range/Units 16:42 05:01 Sodium 141 139 (137-145) mmol/L Potassium 4.5 4.2 (3.5-5.1) mmol/L Chloride 105 108 H (98-107) mmol/L Carbon Dioxide 28 26 (22-30) mmol/L BUN 58 H 46 H (9-20) mg/dL Creatinine 1.90 H 1.59 H (0.66-1.25) mg/dL Glucose 140 H 103 H (74-99) mg/dL Calcium 8.6 8.3 L (8.4-10.2) mg/dL AST 35 24 (17-59) U/L ALT 19 16 (4-49) U/L Alkaline Phosphatase 82 81 (38-126) U/L Total Protein 6.5 5.7 L (6.3-8.2) g/dL Albumin 3.9 3.4 L (3.5-5.0) g/dL Current Medications Generic Name Dose Route Start Last Admin Trade Name Freq PRN Reason Stop Dose Admin Acetaminophen 650 mg 09/15/20 19:01 Acetaminophen Tab 325 Mg Tab PO Q4HR PRN Fever and/or Mild Pain Amlodipine Besylate 5 mg 09/16/20 09:30 09/16/20 09:49 Amlodipine 5 Mg Tab PO 5 mg DAILY [facility] Administration Heparin Sodium (Porcine) 5,000 unit 09/16/20 09:30 09/16/20 09:49 Heparin Sodium,Porcine 5,000 Unit/Ml 1 Ml Vial SQ 5,000 unit Q12HR [facility] Administration Sodium Chloride 1,000 mls @ 100 mls/hr 09/15/20 19:15 09/16/20 05:41 Saline 0.9% IV Not Given .Q10H [facility] Sodium Chloride 1,000 mls @ 50 mls/hr 09/16/20 09:45 Saline 0.9% IV .Q20H [facility] Sodium Chloride 1,000 mls @ 50 mls/hr 09/16/20 09:45 Saline 0.9% IV .Q20H [facility] Cefazolin Sodium 1,000 mg/ 250 mls @ 500 mls/hr 09/17/20 06:00 Sodium Chloride IRRIGATION 09/17/20 06:29 ONCE ONE Cefazolin Sodium 2 gm/ Sodium 50 mls @ 100 mls/hr 09/17/20 06:00 Chloride IVPB 09/17/20 06:29 ONCE ONE Levothyroxine Sodium 75 mcg 09/16/20 09:00 09/16/20 09:49 Levothyroxine 75 Mcg Tab PO 75 mcg DAILY@0630 [facility] Administration Naloxone HCl 0.2 mg 09/15/20 19:01 Naloxone 0.4 Mg/Ml 1 Ml Vial IV Q2M PRN Opioid Reversal Intake and Output 09/15/20 09/16/20 09/16/20 22:59 06:59 14:59 Intake Total 100 800 100 Output Total 300 200 400 Balance -200 600 -300 Intake: IV 100 800 100 Sodium Chloride 0.9% 1, 100 800 100 000 ml @ 100 mls/hr IV . Q10H [facility] Rx#:[id number] Output: Urine 300 200 400 Other: Voiding Method Urinal # Voids 1 0 2 Weight 72.575 kg 73 kg 09/16/20 05:01 09/16/20 05:01 EKG Interpretations (text) EKG on presentation here showed a sinus bradycardia with A-V dissociation, junctional bradycardia and right bundle branch block pattern. Assessment and Plan Plan: Assessment and plan #1 high degree AV block #2 known history of coronary artery disease with prior RCA and circumflex stenting #3 hypertension #4 hyperlipidemia #5 peripheral vascular disease #6 nicotine dependence Plan We will obtain an echocardiogram with Doppler study. Start the patient on 5000 units of subcu heparin twice a day, his dose of Synthroid is also been increased, we will add Norvasc to his medication regime to optimize his blood pressure control. Patient is also been scheduled to undergo implantation of a permanent pacemaker today by Dr. Sarita Martínez. DNP note has been reviewed, I agree with a documented findings and plan of care. Patient was seen and examined.
[2020-09-16 11:42] LABS: Glucose,Whole Blood 123 mg/dL (75-99)
--- NOTE | 2020-09-16 11:50 | P.HPIM ---
History of Present Illness 89-year-old the person made pleasant male came in with compensative generalized tightness found to have A-V dissociation. Patient does have history of coronary disease with RCA stent I do not have any echo available at this time patient the has elevated creatinine about 2 which has come down with IV fluids. Patient baseline creatinine appears to be around 1.3 does appear to have chronic kidney disease stage III. Patient is going for pacemaker placement today. Patient denied any fever chills patient had nausea vomiting patient has elevated TSH T4 will be obtained patient was started on levothyroxine. Patient doesn't have any significant acute abnormalities troponin is minimally elevated to 0.03. In the supine elevation is probably secondary to chronic kidney disease Review of Systems REVIEW OF SYSTEMS: CONSTITUTIONAL: As mentioned in HPI HEENT: No recent visual problems or hearing problems. Denied any sore throat. CARDIOVASCULAR: No chest pain, orthopnea, PND, no palpitations, no syncope. PULMONARY: No shortness of breath, no cough, no hemoptysis. GASTROINTESTINAL: No diarrhea, no nausea, no vomiting, no abdominal pain. NEUROLOGICAL: No headaches, no weakness, no numbness. HEMATOLOGICAL: Denies any bleeding or petechiae. GENITOURINARY: Denies any burning micturition, frequency, or urgency. MUSCULOSKELETAL/RHEUMATOLOGICAL: Denies any joint pain, swelling, or any muscle pain. ENDOCRINE: Denies any polyuria or polydipsia. The rest of the 14-point review of systems is negative. Past Medical History Past Medical History: Hyperlipidemia, Hypertension Additional Past Medical History / Comment(s): cardiac arrhythmia- sees Dr Orta History of Any Multi-Drug Resistant Organisms: None Reported Past Surgical History: Joint Replacement Additional Past Surgical History / Comment(s): Possible stenting of left carotid stenosis Past Anesthesia/Blood Transfusion Reactions: No Reported Reaction Past Psychological History: No Psychological Hx Reported Smoking Status: Former smoker Past Alcohol Use History: None Reported Past Drug Use History: None Reported - Past Family History Mother Family Medical History: No Reported History Medications and Allergies Home Medications Medication Instructions Recorded Confirmed Type Aspirin EC [Ecotrin Low Dose] 81 mg PO DAILY 04/18/19 09/15/20 History Atorvastatin [Lipitor] 20 mg PO DAILY 04/18/19 09/15/20 History Enalapril/Hydrochlorothiazide 1 tab PO DAILY 04/18/19 09/15/20 History [Enalapril/Hydrochlorothiazide 10-25 mg Tablet] HYDROcodone/APAP 10-325MG [[place] 1 tab PO Q4H PRN 04/18/19 09/15/20 History 10-325] Isosorbide Mononitrate ER [Imdur] 60 mg PO DAILY 04/18/19 09/15/20 History Tamsulosin [Flomax] 0.8 mg PO HS 04/18/19 09/15/20 History Multivit-Min/FA/Lycopen/Lutein 1 tab PO DAILY 09/15/20 09/15/20 History [Centrum Silver Tablet] Allergies Allergy/AdvReac Type Severity Reaction Status Date / Time No Known Allergies Allergy Verified 09/15/20 18:06 Physical Exam Vitals: Vital Signs Temp Pulse Resp BP Pulse Ox 09/16/20 11:30 38 L 16 146/55 91 L 09/16/20 11:00 39 L 19 159/61 86 L 09/16/20 10:30 40 L 21 93 L 09/16/20 10:00 36 L 18 163/61 92 L 09/16/20 09:30 36 L 14 173/63 91 L 09/16/20 09:00 36 L 25 H 157/61 93 L 09/16/20 08:30 35 L 25 H 159/59 95 09/16/20 08:00 98.4 F 35 L 23 149/64 97 09/16/20 07:30 35 L 25 H 162/64 96 09/16/20 07:00 35 L 11 L 160/63 95 09/16/20 06:30 35 L 16 147/56 98 09/16/20 06:00 34 L 20 151/61 97 09/16/20 05:30 38 L 18 137/58 95 09/16/20 05:00 37 L 12 132/52 97 09/16/20 04:30 33 L 12 122/51 96 09/16/20 04:00 97.6 F 33 L 19 106/46 97 09/16/20 03:30 33 L 15 142/57 88 L 09/16/20 03:00 33 L 12 148/59 89 L 09/16/20 02:30 37 L 11 L 157/60 84 L 09/16/20 02:00 39 L 14 154/62 85 L 09/16/20 01:30 35 L 12 152/63 95 09/16/20 01:00 35 L 14 144/57 95 09/16/20 00:30 33 L 16 144/57 97 09/16/20 00:00 34 L 16 160/53 92 L 09/15/20 23:30 38 L 18 160/53 96 09/15/20 23:12 35 L 14 95 09/15/20 23:00 97.9 F 38 L 21 160/53 90 L 09/15/20 22:30 35 L 20 97 09/15/20 22:02 23 09/15/20 21:00 98.1 F 34 L 18 156/66 95 09/15/20 19:50 97.9 F 34 L 18 145/59 97 09/15/20 18:00 34 L 18 115/70 96 09/15/20 17:00 36 L 18 105/67 99 09/15/20 16:22 37 L 18 140/56 99 09/15/20 16:00 97.1 F L 54 L 16 132/47 92 L Intake and Output 09/15/20 09/16/20 09/16/20 22:59 06:59 14:59 Intake Total 100 800 100 Output Total 300 200 400 Balance -200 600 -300 Intake: IV 100 800 100 Sodium Chloride 0.9% 1, 100 800 100 000 ml @ 100 mls/hr IV . Q10H [facility] Rx#:[id number] Output: Urine 300 200 400 Other: Voiding Method Urinal # Voids 1 0 2 Weight 72.575 kg 73 kg PHYSICAL EXAMINATION: GENERAL: The patient is alert and oriented x3, not in any acute distress. Well developed, well nourished. HEENT: Pupils are round and equally reacting to light. EOMI. No scleral icterus. No conjunctival pallor. Normocephalic, atraumatic. No pharyngeal erythema. No t hyromegaly. CARDIOVASCULAR: S1 and S2 present. No rubs, or gallops. There may be a systolic murmur in the mitral area PULMONARY: Chest is clear to auscultation, no wheezing or crackles. ABDOMEN: Soft, nontender, nondistended, normoactive bowel sounds. No palpable organomegaly. MUSCULOSKELETAL: No joint swelling or deformity. EXTREMITIES: No cyanosis, clubbing, or pedal edema. NEUROLOGICAL: Gross neurological examination did not reveal any focal deficits. SKIN: No rashes. Results CBC & Chem 7: 09/16/20 05:01 09/16/20 05:01 Labs: Abnormal Lab Results - Last 24 Hours (Table) 09/15/20 09/15/20 09/16/20 Range/Units 16:42 16:42 05:01 RBC 3.01 L 2.82 L (4.30-5.90) m/uL Hgb 9.9 L 9.4 L (13.0-17.5) gm/dL Hct 30.0 L 28.2 L (39.0-53.0) % Plt Count 140 L (150-450) k/uL Lymphocytes # 0.7 L (1.0-4.8) k/uL Chloride (98-107) mmol/L BUN 58 H (9-20) mg/dL Creatinine 1.90 H (0.66-1.25) mg/dL Glucose 140 H (74-99) mg/dL POC Glucose (mg/dL) (75-99) mg/dL Calcium (8.4-10.2) mg/dL Ionized Calcium Chris 4.3 L (4.5-5.3) mg/dL Magnesium 3.1 H (1.6-2.3) mg/dL Total Protein (6.3-8.2) g/dL Albumin (3.5-5.0) g/dL TSH 7.190 H (0.465-4.680) mIU/L 09/16/20 09/16/20 Range/Units 05:01 11:41 RBC (4.30-5.90) m/uL Hgb (13.0-17.5) gm/dL Hct (39.0-53.0) % Plt Count (150-450) k/uL Lymphocytes # (1.0-4.8) k/uL Chloride 108 H (98-107) mmol/L BUN 46 H (9-20) mg/dL Creatinine 1.59 H (0.66-1.25) mg/dL Glucose 103 H (74-99) mg/dL POC Glucose (mg/dL) 123 H (75-99) mg/dL Calcium 8.3 L (8.4-10.2) mg/dL Ionized Calcium Chris (4.5-5.3) mg/dL Magnesium 2.9 H (1.6-2.3) mg/dL Total Protein 5.7 L (6.3-8.2) g/dL Albumin 3.4 L (3.5-5.0) g/dL TSH (0.465-4.680) mIU/L Thrombosis Risk Factor Assmnt - Choose All That Apply Any of the Below Risk Factors Present?: No Other Risk Factors: Yes Each Risk Factor Represents 3 Points: Age 75 years or older Other congenital or acquired thrombophilia - If yes, enter type in comment: No Thrombosis Risk Factor Assessment Total Risk Factor Score: 3 Thrombosis Risk Factor Assessment Level: Moderate Risk Assessment and Plan Plan: -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
[2020-09-16] MEDS ORDERED: ceFAZolin 1,000 MG in SODIUM CHLORIDE 0.9% IRRIGATIO 250 ML IRRIGATION ONE (13:30)
[2020-09-16] MEDS: MIDAZOLAM 2 MG/2 ML VIAL IVP ONE ×2 (13:32→13:41)
[2020-09-16] MEDS ORDERED: IV FLUID CONTINUATION 1,000 ML IV ONE (13:33)
[2020-09-16] MEDS: LIDOCAINE 1% INJ 10MG/ML (20 ML MDV) SQ ONE ×2 (13:37→14:46)
[2020-09-16] MEDS ORDERED: ACETAMINOPHEN TAB 325 MG TAB PO PRN (15:54)
[2020-09-16] MEDS ORDERED: amLODIPine 5 MG TAB PO PRN (15:54)
--- NOTE | 2020-09-16 16:30 | XR ---
EXAMINATION TYPE: XR chest 1V portable DATE OF EXAM: 09/16/2020 Comparison: 09/15/2020 Clinical History: 89-year-old male post pacemaker Findings: Left anterior chest wall pacemaker generator with right atrial and right ventricular leads. Heart mil dly enlarged. Mild elongation thoracic aorta. Increasing interstitial and mild patchy densities. No s izable effusion on the frontal view. Impression: 1. Interval placement of a 2-lead left-sided pacemaker. 2. Developing interstitial pulmonary edema.
--- NOTE | 2020-09-16 17:02 | PCN ---
PROCEDURE NOTE PROCEDURE: Dual-chamber permanent pacemaker from left infraclavicular approach. PERFORMED BY: Dr. Thu Martínez. Moderate conscious sedation time was 125 minutes. Patient was administered Versed. Oxygen saturation, hemodynamics and EKG were monitored closely. CLINICAL INFORMATION: Mr. Ervin Christopher is an 89-year-old gentleman with a history of CAD, multivessel PCI, hypertension and hyperlipidemia who presented to the hospital with a complete heart block, weakness, fatigue, lack of energy, stumbling and unsteady on his feet. He was found to be in a complete heart block with significant symptoms. He was on atenolol 50 mg and his TSH was 7.1. However, given his presentation and significant right bundle, I advised a dual-chamber pacemaker. I spoke to the patient and his daughter at length, explained to them the rationale, risks, benefits and options. The risks related to the pacemaker in terms of cardiac puncture, pneumothorax, infection, bleeding and vascular injury were explained in great detail. They understood all details and wished to proceed with the procedure. PROCEDURE NOTE: Under local anesthesia and strict aseptic precautions, two access points were obtained to gain access with a micropuncture needle technique under fluoroscopic guidance. Axillary vein was punctured and two access points were obtained. The location of the access points was about an inch and a half medial and parallel to the left deltopectoral groove. During the attempt I had punctured the subclavian artery once, but pressure was held. A linear incision of about 2-1/2 to 3 inches was made medial and parallel to the left deltopectoral groove. Under local anesthesia, a subfacial pocket was formed. Good hemostasis was secured. The pocket was drenched with an antibiotic swab. Subsequently, a 6-Swazi introducer was advanced and positioned. Under fluoroscopic guidance, the ventricular lead was positioned in the interventricular septum. Good threshold sensitivities were obtained. Ten-volt pacing was performed and the lead was checked in ITALIAN and SALDANA projections. Subsequently with the second access point a 6-Swazi introducer was placed and an atrial lead was positioned under fluoroscopic guidance. Good thresholds and sensitivities were obtained. Ten-volt pacing was performed and the lead was visualized in ITALIAN and SALDANA projections. Subsequently, as I was about to close the pocket, we had some issue with the ventricular lead with micro-dislodgement. I went back and repositioned the lead under fluoroscopic guidance. At this time I kept it in the right ventricular apex. Excellent thresholds and sensitivities were obtained. The lead was again checked at 10 V. SALDANA and ITALIAN visualization occurred. Both the leads were secured with 0 silk to the underlying muscle. Subsequently the pulse generator was attached to the leads and the pulse generator was also secured in the suture line. Antibiotic solution was used to irrigate the pocket. The pocket was closed in 2 layers with a 2-0 Vicryl and then a 3- 0 Vicryl. Excellent hemostasis was secured. The details were discussed with the patient and his family and he was sent to the room in stable condition. A chest x-ray was obtained and appears to be normal with a good lead position. I did a bedside echo because of chest pain, small to trace pericardial effusion seen not significant. PACEMAKER INFORMATION AND DETAILS: Management Development Specialist of the pacemaker [employer], model Assurity MRI 2272, serial #[id number]. Atrial lead co founder and director [employer], model Tendril [id number]/45, serial number [id number]. Ventricular lead co founder and director [employer], model Tendril STS 2088 TC/58, serial number [id number]. Location of the ventricular lead was right ventricular apex. The atrial lead threshold was 0.75 V at 0.4 milliseconds. P-waves more than 5.0. Impedance 400 ohms. The ventricular lead threshold was 1.25 V at 0.4 milliseconds. R- waves were 7.9 with a lead impedance of 680 ohms. The pacemaker was set in a DDD mode with a low rate of 50, high rate of 110, a paced AV delay of 200 milliseconds and a sensed AV delay of 180 milliseconds. The patient was sent to the ICU in stable condition. He will receive 4 doses of Kefzol antibiotic and a repeat chest x-ray will be performed tomorrow with device interrogation. MMODL / IJN: [id number] / YANA
--- NOTE | 2020-09-16 17:36 | ECHOF ---
Referral Reason:complete heart block MEASUREMENTS -------- HEIGHT: 165.1 cm WEIGHT: 72.6 kg BP: FINDINGS -------- Paced rhythm. Limited Study Overall left ventricular systolic function is low-normal with, an EF between 50 - 55 %. There is a small pericardial effusion is located near the right ventricle. There is no evidence of cardiac tamponade. CONCLUSIONS -------- 1. Overall left ventricular systolic function is low-normal with, an EF between 50 - 55 %. 2. There is a small pericardial effusion is located near the right ventricle. PHILOSOPHY LECTURER: BABAK Meier
[2020-09-16] MEDS ORDERED: FUROSEMIDE 10 MG/ML 4 ML VIAL IV STA (18:54)
[2020-09-16] MEDS ORDERED: FUROSEMIDE 10 MG/ML 4 ML VIAL ONE (18:56)
[2020-09-16] MEDS: TAMSULOSIN 0.4 MG CAP.ER.24H PO SCH (20:20)
[2020-09-16] MEDS ORDERED: FAMOTIDINE 20 MG TAB PO SCH (21:00)
[2020-09-17 05:55] LABS: HCT 31.8 % (39.0-53.0); HGB 10.8 gm/dL (13.0-17.5); MCH 33.2 pg (25.0-35.0); MCHC 33.9 g/dL (31.0-37.0); MCV 98.1 fL (80.0-100.0); Mean Platelet Volume 6.9; Platelet Count 145 k/uL (150-450); RBC 3.25 m/uL (4.30-5.90); RDW 13.2 % (11.5-15.5); WBC 5.9 k/uL (3.8-10.6)
[2020-09-17 06:08] LABS: Albumin 3.8 g/dL (3.5-5.0); Calcium 8.6 mg/dL (8.4-10.2); Potassium 3.8 mmol/L (3.5-5.1); Total Bilirubin 0.6 mg/dL (0.2-1.3); Total Protein 6.4 g/dL (6.3-8.2)
[2020-09-17] MEDS: LEVOTHYROXINE 50 MCG TAB PO SCH (06:19)
[2020-09-17] MEDS: ASPIRIN 81 MG PO SCH (09:09)
[2020-09-17] MEDS: HEPARIN SODIUM,PORCINE 5,000 UNIT/ML 1 ML VIAL SQ SCH ×2 (09:10→21:13)
[2020-09-17] MEDS: ISOSORBIDE MONONITRATE ER 60 MG TAB.ER.24H PO SCH (09:10)
[2020-09-17] MEDS: amLODIPine 5 MG TAB PO SCH (09:10)
[2020-09-17] MEDS: MULTIVITAMINS, THERA 1 EACH TAB PO SCH (09:10)
--- NOTE | 2020-09-17 09:10 | XR ---
EXAMINATION TYPE: XR chest 2V DATE OF EXAM: 09/17/2020 COMPARISON: Prior chest x-ray 09/16/2020 HISTORY: Lead placement check TECHNIQUE: Frontal and lateral views of the chest are obtained. FINDINGS: There is a generator in the left pectoral region, leads are present in the right atrium an d ventricle. Patient is rotated. Heart size is likely stable. Interstitium is improved. No pneumothor ax. Some minimal patchy basilar density is noted, exam is expiratory. IMPRESSION: Expiratory rotated exam. No evident complication status post lead placement. Improvement in volume status, aeration. Possible basilar atelectasis, difficult to exclude small effusion.
--- NOTE | 2020-09-17 09:34 | P.PN ---
Subjective Progress Note Date: 09/17/20 Principal diagnosis: Generalized weakness secondary to complete heart block This is a very pleasant 89-year-old gentleman who follows Dr. Lake as his primary care provider. He has a history of hypertension, hyperlipidemia, BPH. He presented to his PCPs office yesterday with complaints of increasing weakness, fatigue, dyspnea on exertion. EKG there revealed bradycardia in the 30s. 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 Upon arrival he was found to be in complete heart block with a heart rate in the 30s and was admitted to the intensive care unit for the same. Seen today in consultation. He is awake and alert in no acute distress. Remains in complete heart block. Blood pressure stable currently. No dizziness or lightheadedness. No chest pain. No worsening shortness of breath at rest. White count 5.1. Hemoglobin 9.4. Platelets 140. Sodium 139. Potassium 4.2. Creatinine 1.59. Magnesium 2.9. Troponin 0.03. TSH 7.19. Chest x-ray reveals no acute pulmonary process. Echocardiogram pending. Cardiology consult pending. The patient is seen today 09/17/2020 in follow-up in the intensive care unit. He is sitting up in a chair at the bedside. Awake and alert in no acute distress. Maintaining O2 saturations in the 90s on room air. He is afebrile. Hemodynamically stable. He did undergo a dual-chamber permanent pacemaker implantation yesterday. A [employer] device to be interrogated today. Currently A sensing V pacing. Chest x-ray reveals no evidence of pneumothorax. There is some basilar atelectasis noted. Objective - Vital Signs Vital signs: Vital Signs Temp 98.9 F 09/17/20 08:00 Pulse 68 09/17/20 08:00 Resp 21 09/17/20 08:00 BP 147/66 09/17/20 08:00 Pulse Ox 96 09/17/20 08:00 Intake & Output 09/16/20 09/17/20 09/17/20 18:59 06:59 18:59 Intake Total 1175 775 Output Total 950 2700 Balance 225 -1925 Weight 70.4 kg Intake: IV 875 525 Sodium Chloride 0.9% 1, 775 525 000 ml @ 100 mls/hr IV . Q10H [facility] Rx#:[id number] Oral 300 250 Output: Urine 950 2700 Other: Voiding Method Urinal # Voids 1 1 0 - Exam GENERAL EXAM: Alert, pleasant 89-year-old gentleman, on room air, comfortable in no apparent distress. HEAD: Normocephalic. EYES: Normal reaction of pupils, equal size. NOSE: Clear with pink turbinates. THROAT: No erythema or exudates. NECK: No masses, no JVD. CHEST: Dressing to the left subclavian area dry and intact. No chest wall deformity. LUNGS: Equal air entry with no crackles, wheeze, rhonchi or dullness. CVS: S1 and S2 normal with no audible murmur, regular rhythm. V paced. ABDOMEN: No hepatosplenomegaly, normal bowel sounds, no guarding or rigidity. SPINE: No scoliosis or deformity SKIN: No rashes CENTRAL NERVOUS SYSTEM: No focal deficits, tone is normal in all 4 extremities. EXTREMITIES: There is no peripheral edema. No clubbing, no cyanosis. Peripheral pulses are intact. - Labs CBC & Chem 7: 09/17/20 05:43 09/17/20 05:43 Labs: Abnormal Lab Results - Last 24 Hours (Table) 09/16/20 09/17/20 09/17/20 Range/Units 11:41 05:43 05:43 RBC 3.25 L (4.30-5.90) m/uL Hgb 10.8 L (13.0-17.5) gm/dL Hct 31.8 L (39.0-53.0) % Plt Count 145 L (150-450) k/uL BUN 31 H (9-20) mg/dL Glucose 123 H (74-99) mg/dL POC Glucose (mg/dL) 123 H (75-99) mg/dL Assessment and Plan Assessment: 1 Generalized weakness, dyspnea on exertion and fatigue secondary to bradycardia from complete heart block, status post dual-chamber pacemaker placement on 09/16/2021 postoperative day #1 2 Hypothyroid 3 Acute renal failure 4 Anemia 5 Hypertension 6 Hyperlipidemia 7 History of right inguinal hernia 8 Benign prostatic hypertrophy Plan: The patient was seen and evaluated by Dr. Hammer Currently stable from the pulmonary and critical care standpoint To be transferred out of the ICU today to the selective care unit Problem we'll discharge in the a.m. We'll follow as needed. I, the cosigning physician, performed a history & physical examination of the patient. Lungs sounds are clear. Maintaining good O2 saturations in the 90s on room air. I discussed the assessment and plan of care with my nurse practitioner, Esthela Cross. I attest to the above note as dictated by her.
--- NOTE | 2020-09-17 10:06 | PN ---
PROGRESS NOTE This is 89-year-old gentleman who underwent a pacemaker yesterday. He is doing well this morning, asymptomatic. Pacemaker is functioning well. Atrial sensed and ventricular paced rhythm. Chest x-ray is unremarkable. Echo reveals a small pericardial effusion which I do not believe is significant and may have been noted before as well. It is an extremely small effusion. The patient is asymptomatic. Hemoglobin is stable and is sitting up and resting without symptoms. Vitals are stable, there is no JVD, S1-S2 heard normally. Lungs revealed decent air entry. Abdomen and lower extremity exam unchanged. Plan are to interrogate his device, increase activity, move him to telemetry unit with a possible discharge tomorrow. A full echo will also be performed. Plan is to continue his current medications and increase activity. BERNADETTEL / IJN: [id number] /
--- NOTE | 2020-09-17 11:18 | ECHOF ---
Referral Reason:Repeat full study MEASUREMENTS -------- HEIGHT: 165.1 cm WEIGHT: 70.3 kg BP: 147/69 RVIDd: 3.1 cm (< 3.3) IVSd: 1.4 cm (0.6 - 1.1) LVIDd: 4.6 cm (3.9 - 5.3) LVPWd: 1.4 cm (0.6 - 1.1) IVSs: 1.7 cm LVIDs: 3.2 cm LVPWs: 1.5 cm LA Diam: 3.9 cm (2.7 - 3.8) Ao Diam: 3.3 cm (2.0 - 3.7) AV Cusp: 1.5 cm (1.5 - 2.6) MV EXCURSION: 12.364 mm (> 18.000) MV EF SLOPE: 16 mm/s (70 - 150) EPSS: 0.9 cm MV E Almas: 0.56 m/s MV DecT: 325 ms MV A Almas: 0.78 m/s MV E/A Ratio: 0.72 AV maxP.43 mmHg AV meanP.85 mmHg RAP: 5.00 mmHg RVSP: 21.42 mmHg FINDINGS -------- Paced rhythm. This was a technically difficult study with suboptimal views. The left ventricular size is normal. There is moderate concentric left ventricular hypertrophy. O verall left ventricular systolic function is normal with, an EF between 55 - 60 %. The right ventricle is normal in size. The left atrium is normal in size. The right atrium is normal in size. 3 ml of Lumason was utilized for enhancement of images. There is moderate aortic valve sclerosis. There is moderate aortic stenosis present. Peak/mean gr adient across the Aortic Valve is 37.43mmHg / 20.85mmHg. Mild mitral annular calcification present. Mild tricuspid regurgitation present. Right ventricular systolic pressure is normal at < 35 mmHg. There is no pulmonic regurgitation present. The aortic root size is normal. IVC Not well visulized. There is no pericardial effusion. CONCLUSIONS -------- 1. The left ventricular size is normal. 2. There is moderate concentric left ventricular hypertrophy. 3. Overall left ventricular systolic function is normal with, an EF between 55 - 60 %. 4. 3 ml of Lumason was utilized for enhancement of images. 5. There is moderate aortic valve sclerosis. 6. There is moderate aortic stenosis present. 7. Peak/mean gradient across the Aortic Valve is 37.43mmHg / 20.85mmHg. 8. Mild mitral annular calcification present. 9. Mild tricuspid regurgitation present. 10. There is no pulmonic regurgitation present. 11. There is no pericardial effusion. DEBT COUNSELOR: Aisha Delong RDCS
--- NOTE | 2020-09-17 16:03 | P.PN ---
Subjective patient is admitted for high-grade AV block, patient had a pacemaker placement procedure. Constitutional: Denied any fatigue denied any fever. Cardio vascular: denied any chest pain, palpitations Gastrointestinal denied any nausea vomiting Pulmonary: Denied any shortness of breath cough Neurologic denied any new focal deficits All inpatient medications were reviewed and appropriate changes in these medications as dictated in the interval history and assessment and plan. Objective - Vital Signs Vital signs: Vital Signs Temp 98.2 F 09/17/20 11:58 Pulse 82 09/17/20 13:30 Resp 18 09/17/20 13:30 BP 135/77 09/17/20 13:00 Pulse Ox 96 09/17/20 11:58 Intake & Output 09/16/20 09/17/20 09/17/20 18:59 06:59 18:59 Intake Total 1175 775 Output Total 950 2700 200 Balance 225 -1925 -200 Weight 70.4 kg Intake: IV 875 525 Sodium Chloride 0.9% 1, 775 525 000 ml @ 100 mls/hr IV . Q10H [facility] Rx#:[id number] Oral 300 250 Output: Urine 950 2700 200 Other: Voiding Method Urinal Urinal # Voids 1 1 0 - Exam PHYSICAL EXAMINATION: GENERAL: The patient is alert and oriented x3, not in any acute distress. Well developed, well nourished. HEENT: Pupils are round and equally reacting to light. EOMI. No scleral icterus. No conjunctival pallor. Normocephalic, atraumatic. No pharyngeal erythema. No thyromegaly. CARDIOVASCULAR: S1 and S2 present. No rubs, or gallops. There may be a systolic murmur in the mitral areapatient has a pacemaker device on the side of the chest PULMONARY: Chest is clear to auscultation, no wheezing or crackles. ABDOMEN: Soft, nontender, nondistended, normoactive bowel sounds. No palpable organomegaly. MUSCULOSKELETAL: No joint swelling or deformity. EXTREMITIES: No cyanosis, clubbing, or pedal edema. NEUROLOGICAL: Gross neurological examination did not reveal any focal deficits. SKIN: No rashes. 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
[2020-09-17] MEDS: FAMOTIDINE 20 MG TAB PO SCH (16:29)
[2020-09-17] MEDS ORDERED: SENNOSIDES-DOCUSATE SODIUM 1 EACH TAB PO PRN (21:00)
[2020-09-17] MEDS: TAMSULOSIN 0.4 MG CAP.ER.24H PO SCH (21:12)
[2020-09-18] MEDS: LEVOTHYROXINE 50 MCG TAB PO SCH (07:03)
[2020-09-18] MEDS: ASPIRIN 81 MG PO SCH (08:26)
[2020-09-18] MEDS: ISOSORBIDE MONONITRATE ER 60 MG TAB.ER.24H PO SCH (08:26)
[2020-09-18] MEDS: FAMOTIDINE 20 MG TAB PO SCH (08:26)
[2020-09-18] MEDS: HEPARIN SODIUM,PORCINE 5,000 UNIT/ML 1 ML VIAL SQ SCH (08:26)
[2020-09-18] MEDS: amLODIPine 5 MG TAB PO SCH (08:26)
[2020-09-18] MEDS: MULTIVITAMINS, THERA 1 EACH TAB PO SCH (08:26)
[2020-09-18 08:28] LABS: HCT 32.5 % (39.0-53.0); HGB 10.3 gm/dL (13.0-17.5); MCH 31.4 pg (25.0-35.0); MCHC 31.7 g/dL (31.0-37.0); MCV 99.1 fL (80.0-100.0); Mean Platelet Volume 7.2; Platelet Count 151 k/uL (150-450); RBC 3.27 m/uL (4.30-5.90); RDW 13.6 % (11.5-15.5); WBC 6.3 k/uL (3.8-10.6)
[2020-09-18 08:32] VITALS: TEMP 97.5
[2020-09-18 08:51] LABS: Albumin 3.6 g/dL (3.5-5.0); Calcium 8.9 mg/dL (8.4-10.2); Potassium 4.2 mmol/L (3.5-5.1); Total Bilirubin 0.6 mg/dL (0.2-1.3); Total Protein 6.4 g/dL (6.3-8.2)
[2020-09-18 12:31] VITALS: BP 123/57; PULSE 78; RESP 16
--- NOTE | 2020-09-18 12:52 | P.DS ---
Providers Date of admission: 09/15/20 19:02 Attending physician: Natalie Tubbs Consults: 09/15/20 19:01 Consult Physician Stat Consulting Provider: Pro Hammer Consult Reason/Comments: icu patient Do you want consulting provider notified?: Already Contacted Consult Physician Stat Consulting Provider: Lian Martínez Consult Reason/Comments: bradycardia Do you want consulting provider notified?: Already Contacted Primary care physician: Kristi Huerta Hospital Course: patient is admitted for high-grade AV block, patient had a pacemaker placement procedure. Patient renal failure improved patient was started on amlodipine and DENISSE inhibitor was discontinued. PHYSICAL EXAMINATION: GENERAL: The patient is alert and oriented x3, not in any acute distress. Well developed, well nourished. HEENT: Pupils are round and equally reacting to light. EOMI. No scleral icterus. No conjunctival pallor. Normocephalic, atraumatic. No pharyngeal erythema. No thyromegaly. CARDIOVASCULAR: S1 and S2 present. No rubs, or gallops. There may be a systolic murmur in the mitral areapatient has a pacemaker device on the side of the chest PULMONARY: Chest is clear to auscultation, no wheezing or crackles. ABDOMEN: Soft, nontender, nondistended, normoactive bowel sounds. No palpable organomegaly. MUSCULOSKELETAL: No joint swelling or deformity. EXTREMITIES: No cyanosis, clubbing, or pedal edema. NEUROLOGICAL: Gross neurological examination did not reveal any focal deficits. SKIN: No rashes. 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 -Nicotine use Patient Condition at Discharge: Critical Plan - Discharge Summary Discharge Rx Participant: No New Discharge Prescriptions: New amLODIPine [Norvasc] 5 mg PO DAILY #30 tab Levothyroxine Sodium [Synthroid] 50 mcg PO DAILY@0630 #30 tab Continue Atorvastatin [Lipitor] 20 mg PO DAILY Tamsulosin [Flomax] 0.8 mg PO HS Isosorbide Mononitrate ER [Imdur] 60 mg PO DAILY HYDROcodone/APAP 10-325MG [[place]rexel 10-325] 1 tab PO Q4H PRN PRN Reason: Pain Aspirin EC [Ecotrin Low Dose] 81 mg PO DAILY Multivit-Min/FA/Lycopen/Lutein [Centrum Silver Tablet] 1 tab PO DAILY Discontinued Enalapril/Hydrochlorothiazide [Enalapril/Hydrochlorothiazide 10-25 mg Tablet] 1 tab PO DAILY Discharge Medication List Aspirin EC [Ecotrin Low Dose] 81 mg PO DAILY 04/18/19 [History] Atorvastatin [Lipitor] 20 mg PO DAILY 04/18/19 [History] HYDROcodone/APAP 10-325MG [Drexel 10-325] 1 tab PO Q4H PRN 04/18/19 [History] Isosorbide Mononitrate ER [Imdur] 60 mg PO DAILY 04/18/19 [History] Tamsulosin [Flomax] 0.8 mg PO HS 04/18/19 [History] Multivit-Min/FA/Lycopen/Lutein [Centrum Silver Tablet] 1 tab PO DAILY 09/15/20 [History] Levothyroxine Sodium [Synthroid] 50 mcg PO DAILY@0630 #30 tab 09/17/20 [Rx] amLODIPine [Norvasc] 5 mg PO DAILY #30 tab 09/17/20 [Rx] Follow up Appointment(s)/Referral(s): Kristi Huerta DO [Primary Care Provider] - 3 Days Discharge Disposition: HOME SELF-CARE
--- NOTE | 2020-09-18 15:39 | PN ---
PROGRESS NOTE This gentleman underwent a permanent pacemaker for complete heart block. Site is clean and dry. He is doing well. Ambulating with help. Atrial sensed and ventricular paced. Device has been checked functioning well. Chest x-ray is unremarkable for any pacemaker related issues. Vital signs stable. No JVD. S1-S2 heard normally. Short systolic murmur noted. Lungs reveal decent air entry. Abdomen and lower extremity exam unchanged. Plan are to increase activity and discharge him today and he will follow with Dr. Orta in one week for an office visit and device check. MMODL / IJN: [id number] /
== END 2020-09-18 14:10 | disposition home or self-care (01) | DRG 243 ==
LOC: EC 15:59 → 2SICU 19:02 → 3SCARD 09-18 01:19
PROVIDERS: ADMIT Hospitalist; ATTEND Hospitalist
PROC: 0JH606Z Insertion of Pacemaker, Dual Chamber into Chest Subcutaneous Tissue and Fascia, Open Approach (ICD-10-PCS; principal; 2020-09-16 15:05)
PROC: 02HK3JZ Insertion of Pacemaker Lead into Right Ventricle, Percutaneous Approach (ICD-10-PCS; principal; 2020-09-16 15:05)
PROC: 02H63JZ Insertion of Pacemaker Lead into Right Atrium, Percutaneous Approach (ICD-10-PCS; principal; 2020-09-16 15:05)
DX: I44.2 Atrioventricular block, complete (principal); J98.11 Atelectasis; N17.9 Acute kidney failure, unspecified; N18.30 Chronic kidney disease, stage 3 unspecified; I73.9 Peripheral vascular disease, unspecified; D64.9 Anemia, unspecified; E03.9 Hypothyroidism, unspecified; E78.5 Hyperlipidemia, unspecified; F17.200 Nicotine dependence, unspecified, uncomplicated; I12.9 Hypertensive chronic kidney disease with stage 1 through stage 4 chronic kidney disease, or unspecified chronic kidney disease; I25.10 Atherosclerotic heart disease of native coronary artery without angina pectoris; I45.10 Unspecified right bundle-branch block; N40.0 Benign prostatic hyperplasia without lower urinary tract symptoms; R01.1 Cardiac murmur, unspecified; R79.89 Other specified abnormal findings of blood chemistry; Z79.82 Long term (current) use of aspirin; Z79.899 Other long term (current) drug therapy; Z95.5 Presence of coronary angioplasty implant and graft; Z96.60 Presence of unspecified orthopedic joint implant; Z95.820 Peripheral vascular angioplasty status with implants and grafts
CPT/HCPCS: 33208; 36410; 36415; 71045; 71046; 76937; 80048; 80053; 82330; 82728; 83540; 83550; 83735; 84100; 84439; 84443; 84484; 85025; 85027; 85610; 85730; 87086; 93005; 93306; 93308; 99291

== ENCOUNTER → 2020-11-04 | Outpatient (CLI) | payer MEDICARE, BC ==
--- NOTE | 2020-11-04 12:39 | XR ---
"EXAMINATION TYPE: XR chest 2V DATE OF EXAM: 11/04/2020 COMPARISON: 09/17/2020 TECHNIQUE: PA and lateral views submitted. HISTORY: Shortness of breath FINDINGS: Heart is enlarged and is a cardiac device with atherosclerotic change aorta. Diffuse interstitial pat tern. Tiny bilateral effusions. Arthropathy of the shoulders and degenerative change of the spine. IMPRESSION: 1. Persistent interstitial pattern with tiny bilateral effusions. Correlate for CHF. A [place] level critical message alert has been initiated for Lyubov Orta MD via the [employer] 36 0 | Critical Results System on 11/04/2020 12:36 PM. This message alert has been sent to Lyubov jacobo MD via the preferences provided by the clinician for the receipt of Radiology Critical Findings. Hakeem essage ID [id number]."
== END | disposition home or self-care (01) ==
LOC: RADXRWHC 10:23
PROVIDERS: ATTEND Internal Medicine Interventional Cardiology
DX: J90 Pleural effusion, not elsewhere classified (principal); J84.9 Interstitial pulmonary disease, unspecified; I25.10 Atherosclerotic heart disease of native coronary artery without angina pectoris; I07.9 Rheumatic tricuspid valve disease, unspecified
CPT/HCPCS: 71046

== ENCOUNTER → 2020-11-05 | Outpatient (CLI) | payer MEDICARE, BC ==
[2020-11-05 08:35] LABS: HCT 28.2 % (39.0-53.0); HGB 9.7 gm/dL (13.0-17.5); MCH 32.8 pg (25.0-35.0); MCHC 34.2 g/dL (31.0-37.0); MCV 95.6 fL (80.0-100.0); Mean Platelet Volume 8.7; Platelet Count 148 k/uL (150-450); RBC 2.95 m/uL (4.30-5.90); RDW 12.8 % (11.5-15.5); WBC 5.9 k/uL (3.8-10.6)
[2020-11-05 16:01] LABS: African American GFR (CKD) 61.8 (60.0-200.0); Albumin 4.1 g/dL (3.80-4.90); Albumin/Globulin Ratio 1.95 (1.60-3.17); Anion Gap 6.3 mmol/L (4.00-12.00); Calcium 9.1 mg/dL (8.7-10.3); Carbon Dioxide 28.7 mmol/L (21.6-31.8); Chol/HDL Ratio 2.02; Globulin 2.1 g/dL (1.6-3.3); LDL Cholesterol,Calculated 50.6 mg/dL (0.0-131.0); Non-African American GFR(CKD) 53.3 (60.0-200.0); Potassium 4.8 mmol/L (3.5-5.5); Total Bilirubin 0.7 mg/dL (0.2-1.2); Total Protein 6.2 g/dL (6.2-8.2); VLDL Calculation 15.4 mg/dL (5.00-40.00)
[2020-11-05 16:41] LABS: Erythrocyte Sedimentation Rate 87 mm/Hr (0-20)
== END | disposition home or self-care (01) ==
LOC: LABWHC1 08:08
PROVIDERS: ATTEND Internal Medicine Interventional Cardiology
DX: I25.10 Atherosclerotic heart disease of native coronary artery without angina pectoris (principal); I07.9 Rheumatic tricuspid valve disease, unspecified
CPT/HCPCS: 36415; 80053; 80061; 85027; 85652

== ENCOUNTER 2021-04-19 10:04 | Emergency (ER) | payer MEDICARE, BC ==
[2021-04-19 10:09] VITALS: BP 139/89; PULSE 51; RESP 18; TEMP 98.1
--- NOTE | 2021-04-19 10:50 | ED ---
Abdominal Pain HPI - General Chief Complaint: Abdominal Pain Stated Complaint: constipation Time Seen by Provider: 04/19/21 10:12 Source: patient, family Mode of arrival: ambulatory Limitations: no limitations - History of Present Illness Initial Comments: 89-year-old male presenting to the ER today for chief complaint of didn't poop today. pt states that he take laxative every other day as part of his bowel regime. pt states he last had a BM on Sunday (normal). pt states that he took his laxative yesterday but still hasnt had a bowel movement todya which "isnt like him" pt denies abdominal pain, nausea, vomiting, cramping , fevers, dark stools, bloody stools, chest pain, dyspnea. Patient denies pain with walking. pt has no additional complaints. he appears well nontoxic in no acute distress on arrival. - Related Data Home Medications Medication Instructions Recorded Confirmed Aspirin EC [Ecotrin Low Dose] 81 mg PO DAILY 04/18/19 09/15/20 Atorvastatin [Lipitor] 20 mg PO DAILY 04/18/19 09/15/20 HYDROcodone/APAP 10-325MG [[place] 1 tab PO Q4H PRN 04/18/19 09/15/20 10-325] Isosorbide Mononitrate ER [Imdur] 60 mg PO DAILY 04/18/19 09/15/20 Tamsulosin [Flomax] 0.8 mg PO HS 04/18/19 09/15/20 Multivit-Min/FA/Lycopen/Lutein 1 tab PO DAILY 09/15/20 09/15/20 [Centrum Silver Tablet] Previous Rx's Medication Instructions Recorded Levothyroxine Sodium [Synthroid] 50 mcg PO DAILY@0630 #30 tab 09/17/20 amLODIPine [Norvasc] 5 mg PO DAILY #30 tab 09/17/20 Magnesium Citrate [Citrate of 148 ml PO BID PRN 1 Days #296 ml 04/19/21 Magnesia] Allergies Allergy/AdvReac Type Severity Reaction Status Date / Time No Known Allergies Allergy Verified 04/19/21 10:09 Review of Systems ROS Statement: Those systems with pertinent positive or pertinent negative responses have been documented in the HPI. ROS Other: All systems not noted in ROS Statement are negative. 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 No nystagmus. There is normal conjunctiva bilaterally. No signs of icterus. Ears, nose, mouth and throat: There are moist mucous membranes and no oral lesions. Neck: The neck is supple, there is no tenderness or JVD. Cardiovascular: There is a regular rate and rhythm. No murmur, rub or gallop is appreciated. Respiratory: Lungs are clear to auscultation, respirations are non-labored, breath sounds are equal. No wheezes, stridor, rales, or rhonchi. Gastrointestinal: Soft, non-distended, non-tender abdomen without masses or organomegaly noted. There is no rebound or guarding present. Musculoskeletal: Normal ROM, no tenderness. Strength 5/5. Sensation intact. Radial pulses equal bilaterally 2+. Neurological: A&O x 3. CN II-XII intact grossly, There are no obvious motor or sensory deficits. Coordination appears grossly intact. Speech is normal. Skin: Skin is warm and dry and no rashes or lesions are noted. Psychiatric: Cooperative, appropriate mood & affect, normal judgment. Limitations: no limitations Course Vital Signs 04/19/21 10:04 Temperature 98.1 F Pulse Rate 51 L Respiratory 18 Rate Blood Pressure 139/89 O2 Sat by Pulse 99 Oximetry Medical Decision Making - Medical Decision Making Fecal stasis on x-ray. No impaction nor obstruction mentioned. no pain on exam, nor hx of pain. pt denies vomiting, he appears vrey well. recently increased pain medication dose. recommend decreasing if possible increasing fluids and taking magnesium citrate today. if no BM in 2 days/pain or vomiting in recommend return to ER. pt and attending agreeable to this care plan and discharge Disposition Clinical Impression: Constipation Disposition: HOME SELF-CARE Condition: Good Instructions (If sedation given, give patient instructions): Constipation (ED), High Fiber Diet (ED) Additional Instructions: Please use medication as discussed. Please follow-up with family doctor in the next 2 days. Please return to emergency room if the symptoms increase or worsen or for any other concerns. Prescriptions: Magnesium Citrate [Citrate of Magnesia] 148 ml PO BID PRN 1 Days #296 ml PRN Reason: Constipation Is patient prescribed a controlled substance at d/c from ED?: No Referrals: Kristi Huerta DO [Primary Care Provider] - 1-2 days Time of Disposition: 11:03
--- NOTE | 2021-04-19 10:56 | XR ---
KUB HISTORY: Constipation Frontal KUB submitted on 2 images and correlated prior exam 10/11/2019 There are leads within the heart, heart appears enlarged. There is no evident bowel obstruction or pn eumoperitoneum. Bone mineralization is mildly reduced, degenerative disc changes are present in the v isualized spine. Postop changes are noted over the pelvis. Retained fecal debris present throughout t he distribution of much of the colon. There are atherosclerotic vascular calcifications present. IMPRESSION: Correlate for fecal stasis.
== END 2021-04-19 11:10 | disposition home or self-care (01) ==
LOC: EC 10:04
DX: K59.00 Constipation, unspecified (principal); E78.5 Hyperlipidemia, unspecified; I10 Essential (primary) hypertension; Z87.891 Personal history of nicotine dependence
CPT/HCPCS: 74018; 99283

== ENCOUNTER → 2021-05-12 | Outpatient (CLI) | payer MEDICARE, BC ==
[2021-05-12 18:12] LABS: Albumin 4.5 g/dL (3.80-4.90); Albumin/Globulin Ratio 1.8 (1.60-3.17); Anion Gap 6.9 mmol/L (4.00-12.00); Calcium 9.1 mg/dL (8.7-10.3); Carbon Dioxide 28.1 mmol/L (21.6-31.8); Chol/HDL Ratio 2.33; Globulin 2.5 g/dL (1.6-3.3); LDL Cholesterol,Calculated 57.4 mg/dL (0.0-131.0); Non-African American GFR(CKD) 66.4 (60.0-200.0); Potassium 4.4 mmol/L (3.5-5.5); Total Bilirubin 0.6 mg/dL (0.2-1.2); VLDL Calculation 18.6 mg/dL (5.00-40.00)
== END | disposition home or self-care (01) ==
LOC: LABWHC1 08:49
PROVIDERS: ATTEND Internal Medicine Interventional Cardiology
DX: E78.2 Mixed hyperlipidemia (principal)
CPT/HCPCS: 36415; 80053; 80061